=== PATIENT | female | born 1965 | race Caucasian/White ===

== ENCOUNTER 2018-08-19 11:16 | Observation (INO) | payer MEDICAID, OTHER ==
[2018-08-19] MEDS ORDERED: Sodium Chloride 0.9% 2.5 ML Syringe FLUSH PRN (11:17)
[2018-08-19] MEDS ORDERED: Sodium Chloride 0.9% 10 ML Syringe FLUSH PRN (11:17)
[2018-08-19] MEDS ORDERED: Aspirin 81 MG Tab.Chew PO ONE (11:17)
[2018-08-19] MEDS ORDERED: Sodium Chloride 0.9% 1,000 ML IV ONE (11:23)
[2018-08-19] MEDS ORDERED: Albuterol/Ipratropium 3.0-0.5 MG/3 ML Neb Soln NEB ONE (11:23)
[2018-08-19] MEDS ORDERED: methylPREDNISolone Sodium Succinate 125 MG/2 ML SDV IVPUSH ONE (11:23)
[2018-08-19] MEDS ORDERED: Ondansetron 4 MG/2 ML SDV IVPUSH ONE (11:24)
[2018-08-19] MEDS ORDERED: Morphine 2 MG/ML Syringe IVPUSH ONE (11:34)
[2018-08-19] MEDS ORDERED: Nitroglycerin 0.4 MG Tab.SL SL ONE (11:34)
--- NOTE | 2018-08-19 11:34 | EDM.PDOC ---
ED [facility] GENERAL MEDICAL PROBLEM - General Chief Complaint: Chest Pain Stated Complaint: chest pain Time Seen by Provider: 08/19/18 11:17 Source of Information: Reports: Patient History Limitations: Reports: No Limitations - History of Present Illness INITIAL COMMENTS - FREE TEXT/NARRATIVE: HISTORY AND PHYSICAL: History of present illness: Patient is a 52-year-old female who presents to the ED today with concern complaint of a 6 out of 10 chest pain, shortness of breath, and feeling as if she is "unable to take a deep breath". Patient states the chest pain is worse when she presses on the front of her chest. Patient states the pain is also worse if she takes in a big deep breath. Patient states she had a heart attack in March. She states with her heart attach she only had a headache and didn' t have any of the symptoms that she is having today. Patient states she is on Plavix and takes that accordingly after placement of 1 stent. Patient states her symptoms started 1 hour prior to arrival to the ED today. Patient does express some nausea but has not vomited. Patient denies radiation of the pain. Patient denies fever, chills. Denies headache, neck stiff ness, change in vision , syncope, or near syncope. Denies vomiting, abdominal pain, diarrhea, constipation, or dysuria. Has not noted any blood in urine or stool. Patient has been eating and drinking appropriately. Patient has a history of type 2 diabetes on insulin, coronary artery disease s/ p 1 stent on Plavix (March 2018), congestive heart failure, h/o smoking cigarettes 1 pack a day for 30 years, peripheral neuropathy. Review of systems: As per history of present illness and below otherwise all systems reviewed and negative. Past medical history: As per history of present illness and as reviewed below otherwise noncontributory. Surgical history: As per history of present illness and as reviewed below otherwise noncontributory. Social history: See social history for further information Family history: As per history of present illness and as reviewed below otherwise noncontributory. Physical exam: Physical exam is limited due to body habitus. General: Patient is alert, oriented, and in no acute distress. Patient sitting comfortably on exam table. HEENT: Atraumatic, normocephalic, pupils equal and reactive bilaterally, negative for conjunctival pallor or scleral icterus, mucous membranes dry, TMs normal bilaterally, throat clear, neck supple, nontender, trachea midline. No drooling or trismus noted. No meningeal signs. No hot potato voice noted. Lungs: Diffuse low pitch wheezing to the bilateral lung bases, breath sounds equal bilaterally. Patient does have pain with palpation of the ribs #3 and #4 on the left anterior chest. Heart: Heart sounds are distant and limited due to body habitus. S1S2, regular rate and rhythm without overt murmur Abdomen: Obese, soft, nondistended, nontender. positive bowel sounds are positive throughout all quadrants although slightly hypoactive.Negative for masses or hepatosplenomegaly. Negative for costovertebral tenderness. Pelvis: Stable nontender. Genitourinary: Deferred. Rectal: Deferred. Skin: Intact, warm, dry. No lesions or rashes noted. Extremities: Atraumatic, negative for cords or calf pain. Neurovascular unremarkable. Neuro: Awake, alert, oriented. Cranial nerves II through XII unremarkable. Cerebellum unremarkable. Motor and sensory unremarkable throughout. Exam nonfocal. Notes: Dr. Gallardo was consult on patient and agreeable to admission to observation. Voices understanding and is agreeable to plan of care. Denies any further questions or concerns at this time. Diagnostics: CBC, CMP, BMP, lipase, troponin, UA, chest x-ray, hCG qual, EKG, PT/INR, PTT Therapeutics: Aspirin, nitroglycerin (was not given due to blood pressure), morphine, DuoNeb, Solu-Medrol, Zofran, normal saline, Ativan Impression: Chest pain, unspecified Plan: 1. Admit to observation to Dr. Gallardo. Definitive disposition and diagnosis as appropriate pending reevaluation and review of above. chest Pain Score (Numeric/FACES): 7 feet Pain Score (Numeric/FACES): 10 - Related Data Allergies Allergy/AdvReac Type Severity Reaction Status Date / Time carbamazepine [From Tegretol] Allergy Blurred Verified 08/19/18 11:24 Vision ceftriaxone [From Rocephin] Allergy Respiratory Verified 08/19/18 11:24 Distress Penicillins Allergy Cannot Verified 01/06/16 16:43 Remember Home Meds: Home Meds Aspirin [Halfprin] 81 mg PO DAILY 08/19/18 [History] Clopidogrel [Plavix] 75 mg PO DAILY 08/19/18 [History] Furosemide [Lasix] 40 mg PO PRN 08/19/18 [History] Insulin Glargine/Lixisenatide [Soliqua 100 Unit-33 Mcg/ml Pen] 45 units SQ DAILY 08/19/18 [History] Metoprolol Succinate [Toprol Xl] 50 mg PO DAILY 08/19/18 [History] Pregabalin [Lyrica] 300 mg PO BID 08/19/18 [History] Rosuvastatin [Crestor] 20 mg PO DAILY 08/19/18 [History] Past Medical History Endocrine/Metabolic History: Reports: Diabetes, Type I ED ROS GENERAL - Review of Systems Review Of Systems: ROS reveals no pertinent complaints other than HPI. ED EXAM, GENERAL - Physical Exam Exam: See Below (See dictation) Course - Vital Signs Last Recorded V/S: Last Vital Signs Temp 35.3 C 08/19/18 11:27 Pulse 66 08/19/18 12:20 Resp 18 08/19/18 12:20 BP 107/67 08/19/18 12:20 Pulse Ox 97 08/19/18 12:20 - Orders/Labs/Meds Orders: Active Orders 24 hr Category Date Time Status Cardiac Monitoring [RC] . DIRECTED Care 08/19/18 11:17 Active EKG Documentation Completion [RC] STAT Care 08/19/18 11:17 Active RT Aerosol Therapy [RC] ASDIRECTED Care 08/19/18 11:24 Active UA RFX CHRISTINE AND CULT IF INDIC [URIN] Stat Lab 08/19/18 11:17 Ordered Sodium Chloride 0.9% [Saline Flush] Med 08/19/18 11:17 Active 10 ml FLUSH ASDIRECTED PRN Sodium Chloride 0.9% [Saline Flush] Med 08/19/18 11:17 Active 2.5 ml FLUSH ASDIRECTED PRN Saline Lock Insert [OM.PC] Stat Oth 08/19/18 11:17 Ordered Medication Orders Sodium Chloride (Saline Flush) 10 ml FLUSH ASDIRECTED PRN PRN Reason: Keep Vein Open Last Admin: 08/19/18 11:36 Dose: 10 ml Sodium Chloride (Saline Flush) 2.5 ml FLUSH ASDIRECTED PRN PRN Reason: Keep Vein Open Last Admin: 08/19/18 11:35 Dose: 2.5 ml Labs: Laboratory Tests 08/19/18 08/19/1808/19/19 Range/Units 11:20 11:20 11:20 WBC 12.85 H (4.0-11.0) K/uL RBC 5.23 (4.30-5.90) M/uL Hgb 14.2 (12.0-16.0) g/dL Hct 45.1 (36.0-46.0) % MCV 86.2 (80.0-98.0) fL MCH 27.2 (27.0-32.0) pg MCHC 31.5 (31.0-37.0) g/dL RDW Std Deviation 54.4 (28.0-62.0) fl RDW Coeff of Donna 17 H (11.0-15.0) % Plt Count 309 (150-400) K/uL MPV 9.90 (7.40-12.00) fL Neut % (Auto) 63.7 (48.0-80.0) % Lymph % (Auto) 28.3 (16.0-40.0) % [place] % (Auto) 5.7 (0.0-15.0) % Eos % (Auto) 2.1 (0.0-7.0) % Baso % (Auto) 0.2 (0.0-1.5) % Neut # (Auto) 8.2 H (1.4-5.7) K/uL Lymph # (Auto) 3.6 H (0.6-2.4) K/uL [place] # (Auto) 0.7 (0.0-0.8) K/uL Eos # (Auto) 0.3 (0.0-0.7) K/uL Baso # (Auto) 0.0 (0.0-0.1) K/uL Nucleated RBC % 0.0 /100WBC Nucleated RBCs # 0 K/uL INR APTT (18.6-31.3) SEC Sodium 135 L (136-145) mmol/L Potassium 4.5 (3.5-5.1) mmol/L Chloride 99 (98-107) mmol/L Carbon Dioxide 28.2 (21.0-32.0) mmol/L BUN 11 (7.0-18.0) mg/dL Creatinine 1.1 H (0.6-1.0) mg/dL Est Cr Clr Drug Dosing 43.46 mL/min Estimated GFR (MDRD) 52.4 ml/min Glucose 234 H (74-106) mg/dL Calcium 9.1 (8.5-10.1) mg/dL Total Bilirubin 0.5 (0.2-1.0) mg/dL AST 11 L (15-37) IU/L ALT 16 (14-63) IU/L Alkaline Phosphatase 92 (46-116) U/L Troponin I < 0.050 (0.000-0.056) ng/mL B-Natriuretic Peptide 82 (<100) PG/ML Total Protein 7.7 (6.4-8.2) g/dL Albumin 3.8 (3.4-5.0) g/dL Globulin 3.9 (2.6-4.0) g/dL Albumin/Globulin Ratio 1.0 (0.9-1.6) Lipase 84 (73-393) U/L HCG, Qual (NEG) 08/19/18 08/19/18 Range/Units 11:22 11:22 WBC (4.0-11.0) K/uL RBC (4.30-5.90) M/uL Hgb (12.0-16.0) g/dL Hct (36.0-46.0) % MCV (80.0-98.0) fL MCH (27.0-32.0) pg MCHC (31.0-37.0) g/dL RDW Std Deviation (28.0-62.0) fl RDW Coeff of Donna (11.0-15.0) % Plt Count (150-400) K/uL MPV (7.40-12.00) fL Neut % (Auto) (48.0-80.0) % Lymph % (Auto) (16.0-40.0) % [place] % (Auto) (0.0-15.0) % Eos % (Auto) (0.0-7.0) % Baso % (Auto) (0.0-1.5) % Neut # (Auto) (1.4-5.7) K/uL Lymph # (Auto) (0.6-2.4) K/uL [place] # (Auto) (0.0-0.8) K/uL Eos # (Auto) (0.0-0.7) K/uL Baso # (Auto) (0.0-0.1) K/uL Nucleated RBC % /100WBC Nucleated RBCs # K/uL INR 0.98 APTT 27.1 (18.6-31.3) SEC Sodium (136-145) mmol/L Potassium (3.5-5.1) mmol/L Chloride (98-107) mmol/L Carbon Dioxide (21.0-32.0) mmol/L BUN (7.0-18.0) mg/dL Creatinine (0.6-1.0) mg/dL Est Cr Clr Drug Dosing mL/min Estimated GFR (MDRD) ml/min Glucose (74-106) mg/dL Calcium (8.5-10.1) mg/dL Total Bilirubin (0.2-1.0) mg/dL AST (15-37) IU/L ALT (14-63) IU/L Alkaline Phosphatase (46-116) U/L Troponin I (0.000-0.056) ng/mL B-Natriuretic Peptide (<100) PG/ML Total Protein (6.4-8.2) g/dL Albumin (3.4-5.0) g/dL Globulin (2.6-4.0) g/dL Albumin/Globulin Ratio (0.9-1.6) Lipase (73-393) U/L HCG, Qual NEGATIVE (NEG) Meds: Medications Generic Name Dose Route Start Last Admin Trade Name Freq PRN Reason Stop Dose Admin Sodium Chloride 10 ml 08/19/18 11:17 08/19/18 11:36 Saline Flush FLUSH 10 ml ASDIRECTED PRN Administration Keep Vein Open Sodium Chloride 2.5 ml 08/19/18 11:17 08/19/18 11:35 Saline Flush FLUSH 2.5 ml ASDIRECTED PRN Administration Keep Vein Open Discontinued Medications Generic Name Dose Route Start Last Admin Trade Name Freq PRN Reason Stop Dose Admin Albuterol/Ipratropium 3 ml 08/19/18 11:23 08/19/18 11:35 Duoneb 3.0-0.5 Mg/3 Ml NEB 08/19/18 11:24 3 ml ONETIME ONE Administration Aspirin 324 mg 08/19/18 11:17 08/19/18 11:24 Aspirin PO 08/19/18 11:18 324 mg ONETIME ONE Administration Sodium Chloride 1,000 mls @ 999 mls/hr 08/19/18 11:23 08/19/18 11:31 Normal Saline IV 08/19/18 12:23 999 mls/hr STAT ONE Administration Lorazepam 0.5 mg 08/19/18 12:21 08/19/18 12:32 Ativan IVPUSH 08/19/18 12:22 0.5 mg ONETIME ONE Administration Methylprednisolone Sodium Succinate 125 mg 08/19/18 11:23 08/19/18 11:35 Solu-Medrol IVPUSH 08/19/18 11:24 125 mg ONETIME ONE Administration Morphine Sulfate 2 mg 08/19/18 11:34 08/19/18 11:42 Morphine IVPUSH 08/19/18 11:35 2 mg ONETIME ONE Administration Nitroglycerin 0.4 mg 08/19/18 11:34 Nitrostat SL 08/19/18 11:35 ONETIME ONE Ondansetron HCl 4 mg 08/19/18 11:24 08/19/18 11:33 Zofran IVPUSH 08/19/18 11:25 4 mg ONETIME ONE Administration Departure - Departure Time of Disposition: 12:39 Disposition: Refer to Observation Clinical Impression: History of coronary artery disease Chest pain Qualifiers: Chest pain type: unspecified Qualified Code(s): R07.9 - Chest pain, unspecified Type 2 diabetes mellitus 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 DIRECTED EKG Documentation Completion [RC] STAT UA RFX CHRISTINE AND CULT IF INDIC [URIN] Stat Sodium Chloride 0.9% [Saline Flush] 10 ml FLUSH ASDIRECTED PRN Sodium Chloride 0.9% [Saline Flush] 2.5 ml FLUSH ASDIRECTED PRN Saline Lock Insert [OM.PC] Stat 08/19/18 11:24 RT Aerosol Therapy [RC] ASDIRECTED - Assessment/Plan Last 24 Hours: My Active Orders 08/19/18 11:17 Cardiac Monitoring [RC] . DIRECTED EKG Documentation Completion [RC] STAT UA RFX CHRISTINE AND CULT IF INDIC [URIN] Stat Sodium Chloride 0.9% [Saline Flush] 10 ml FLUSH ASDIRECTED PRN Sodium Chloride 0.9% [Saline Flush] 2.5 ml FLUSH ASDIRECTED PRN Saline Lock Insert [OM.PC] Stat 08/19/18 11:24 RT Aerosol Therapy [RC] ASDIRECTED
[2018-08-19 11:55] LABS: CHLORIDE,CL 99 mmol/L (98-107); SODIUM,NA 135 mmol/L (136-145)
--- NOTE | 2018-08-19 11:57 | CR ---
EXAMINATION: Portable chest radiograph. HISTORY: Chest pain. FINDINGS: The trachea is midline. The heart is moderately prominent. The cardiomediastinal silhouette is within normal limits. No pulmonary infiltrates, effusions or pneumothorax. Osseous structures appear unremarkable. IMPRESSION: Cardiomegaly with otherwise no acute cardiopulmonary process.
[2018-08-19] MEDS ORDERED: LORazepam 2 MG/ML SDV IVPUSH ONE (12:21)
[2018-08-19] MEDS ORDERED: Acetaminophen 325 MG Tab PO PRN (13:01)
[2018-08-19] MEDS ORDERED: Docusate Sodium 100 MG Cap PO PRN (13:01)
[2018-08-19] MEDS ORDERED: Ondansetron 4 MG Tab.DIS PO PRN (13:01)
[2018-08-19] MEDS ORDERED: Albuterol/Ipratropium 3.0-0.5 MG/3 ML Neb Soln NEB PRN (13:01)
--- NOTE | 2018-08-19 13:09 | PCM.HP ---
H&P History of Present Illness - General Date of Service: 08/19/18 Admit Problem/Dx: Admission Diagnosis/Problem Admission Diagnosis/Problem Chest pain, diabetes mellitus type 2, insulin- dependent, diabetic neuropathy Source of Information: Patient History Limitations: Reports: No Limitations - History of Present Illness Initial Comments - Free Text/Narative: The patient is a 52-year-old lady who had presented to the emergency department today with a complaint of S pain. The patient also had shortness of breath and felt like she was not able to take a deep breath. The patient says that she has pain that is primarily in her fracture of her chest and does not radiate although she does have associated neck pain. Patient had a heart attack in August 2017 in which she underwent coronary artery stenting. Patient says that she also had profuse sweating with this. The patient also previously had been diagnosed with congestive heart failure. She is currently under treatment for this but she does not know the details. The patient has had no specific aggravating or relieving factors although the medication does help her some. She has no other complaints at the present time. Onset of Symptoms: Reports: Gradual Duration of Symptoms: Reports: Hour(s):, Intermittent Location: Reports: Chest Quality: Reports: Ache, Pressure Severity: Moderate Improves with: Reports: Rest Worsens with: Reports: Breathing, Movement Context: Denies: Sick Contact, Activity/Exercise, Trauma Associated Symptoms: Reports: Chest Pain, Diaphoresis, Nausea/Vomiting chest Pain Score (Numeric/FACES): 7 feet Pain Score (Numeric/FACES): 10 - Related Data Allergies/Adverse Reactions: Allergies Allergy/AdvReac Type Severity Reaction Status Date / Time carbamazepine [From Tegretol] Allergy Blurred Verified 08/19/18 11:24 Vision ceftriaxone [From Rocephin] Allergy Respiratory Verified 08/19/18 11:24 Distress Penicillins Allergy Cannot Verified 01/06/16 16:43 Remember Home Medications: Home Meds Aspirin [Halfprin] 81 mg PO DAILY 08/19/18 [History] Clopidogrel [Plavix] 75 mg PO DAILY 08/19/18 [History] Furosemide [Lasix] 40 mg PO PRN 08/19/18 [History] Insulin Glargine/Lixisenatide [Soliqua 100 Unit-33 Mcg/ml Pen] 45 units SQ DAILY 08/19/18 [History] Metoprolol Succinate [Toprol Xl] 50 mg PO DAILY 08/19/18 [History] Pregabalin [Lyrica] 300 mg PO BID 08/19/18 [History] Rosuvastatin [Crestor] 20 mg PO DAILY 08/19/18 [History] Past Medical History HEENT History: Reports: None Cardiovascular History: Reports: Heart Failure, Hypertension, CO Respiratory History: Reports: None Gastrointestinal History: Reports: None Genitourinary History: Reports: None Musculoskeletal History: Reports: Back Pain, Chronic Neurological History: Reports: Neuropathy, Diabetic Endocrine/Metabolic History: Reports: Diabetes, Type II, Obesity/BMI 30+ Hematologic History: Reports: None Immunologic History: Reports: None Oncologic (Cancer) History: Reports: None Dermatologic History: Reports: None - Infectious Disease History Infectious Disease History: Reports: None Social & Family History - Family History Family Medical History: Noncontributory - Tobacco Use Smoking Status *Q: Former Smoker Used Tobacco, but Quit: Yes Month/Year Tobacco Last Used: 07/2018 - Caffeine Use Caffeine Use: Reports: Soda - Alcohol Use Alcohol Use History: No - Recreational Drug Use Recreational Drug Use: No - Living Situation & Occupation Living situation: Reports: Single, with Family Occupation: Unemployed H&P Review of Systems - Review of Systems: Review Of Systems: See Below General: Reports: Malaise HEENT: Reports: Visual Changes Pulmonary: Reports: Shortness of Breath Cardiovascular: Reports: Chest Pain, Lightheadedness Gastrointestinal: Reports: No Symptoms Genitourinary: Reports: No Symptoms Musculoskeletal: Reports: Neck Pain Skin: Reports: No Symptoms Psychiatric: Reports: No Symptoms Neurological: Reports: No Symptoms Hematologic/Lymphatic: Reports: No Symptoms Immunologic: Reports: No Symptoms Exam - Exam Exam: See Below - Vital Signs Vital Signs: Last Vital Signs Temp 35.3 C 08/19/18 11:27 Pulse 68 08/19/18 13:06 Resp 18 08/19/18 13:06 BP 111/68 08/19/18 13:06 Pulse Ox 98 08/19/18 13:06 Weight: 81.647 kg - Exam Quality Assessment: No: Supplemental Oxygen General: Alert, Oriented, Cooperative, Mild Distress HEENT: Conjunctiva Clear, EACs Clear, EOMI, Mucosa Moist & [place] (Edentulous), Nares Patent, PERRLA Neck: Supple, Trachea Midline. No: Carotid Bruit Lungs: Clear to Auscultation, Normal Respiratory Effort Cardiovascular: Regular Rate, Regular Rhythm, Normal S1, Normal S2 GI/Abdominal Exam: Normal Bowel Sounds, Soft, Non-Tender, No Distention, Other ( Obese). No: Guarding, Rigid (Female) Exam: Deferred Rectal (Female) Exam: Deferred Back Exam: Normal Inspection, Full Range of Motion Extremities: Normal Inspection, Normal Range of Motion, No Pedal Edema Skin: Warm, Dry, Intact Neurological: Cranial Nerves Intact Neuro Extensive - Mental Status: Alert, Oriented x3 Neuro Extensive - Motor, Sensory, Reflexes: CN II-XII Intact, Normal Gait Psychiatric: Alert, Normal Affect, Normal Mood - Patient Data Lab Results Last 24 hrs: Laboratory Results - last 24 hr 08/19/18 08/19/18 08/19/18 Range/Units 11:20 11:20 11:20 WBC 12.85 H (4.0-11.0) K/uL RBC 5.23 (4.30-5.90) M/uL Hgb 14.2 (12.0-16.0) g/dL Hct 45.1 (36.0-46.0) % MCV 86.2 (80.0-98.0) fL MCH 27.2 (27.0-32.0) pg MCHC 31.5 (31.0-37.0) g/dL RDW Std Deviation 54.4 (28.0-62.0) fl RDW Coeff of Donna 17 H (11.0-15.0) % Plt Count 309 (150-400) K/uL MPV 9.90 (7.40-12.00) fL Neut % (Auto) 63.7 (48.0-80.0) % Lymph % (Auto) 28.3 (16.0-40.0) % [place] % (Auto) 5.7 (0.0-15.0) % Eos % (Auto) 2.1 (0.0-7.0) % Baso % (Auto) 0.2 (0.0-1.5) % Neut # (Auto) 8.2 H (1.4-5.7) K/uL Lymph # (Auto) 3.6 H (0.6-2.4) K/uL [place] # (Auto) 0.7 (0.0-0.8) K/uL Eos # (Auto) 0.3 (0.0-0.7) K/uL Baso # (Auto) 0.0 (0.0-0.1) K/uL Nucleated RBC % 0.0 /100WBC Nucleated RBCs # 0 K/uL INR APTT (18.6-31.3) SEC Sodium 135 L (136-145) mmol/L Potassium 4.5 (3.5-5.1) mmol/L Chloride 99 (98-107) mmol/L Carbon Dioxide 28.2 (21.0-32.0) mmol/L BUN 11 (7.0-18.0) mg/dL Creatinine 1.1 H (0.6-1.0) mg/dL Est Cr Clr Drug Dosing 43.46 mL/min Estimated GFR (MDRD) 52.4 ml/min Glucose 234 H (74-106) mg/dL Calcium 9.1 (8.5-10.1) mg/dL Total Bilirubin 0.5 (0.2-1.0) mg/dL AST 11 L (15-37) IU/L ALT 16 (14-63) IU/L Alkaline Phosphatase 92 (46-116) U/L Troponin I < 0.050 (0.000-0.056) ng/mL B-Natriuretic Peptide 82 (<100) PG/ML Total Protein 7.7 (6.4-8.2) g/dL Albumin 3.8 (3.4-5.0) g/dL Globulin 3.9 (2.6-4.0) g/dL Albumin/Globulin Ratio 1.0 (0.9-1.6) Lipase 84 (73-393) U/L HCG, Qual (NEG) Urine Color Urine Appearance Urine pH (5.0-8.0) Ur Specific [place] (1.001-1.035) Urine Protein (NEGATIVE) mg/dL Urine Glucose (UA) (NEGATIVE) mg/dL Urine Ketones (NEGATIVE) mg/dL Urine Occult Blood (NEGATIVE) Urine Nitrite (NEGATIVE) Urine Bilirubin (NEGATIVE) Urine Urobilinogen (<2.0) EU/dL Ur Leukocyte Esterase (NEGATIVE) 08/19/18 08/19/18 08/19/18 Range/Units 11:22 11:22 12:28 WBC (4.0-11.0) K/uL RBC (4.30-5.90) M/uL Hgb (12.0-16.0) g/dL Hct (36.0-46.0) % MCV (80.0-98.0) fL MCH (27.0-32.0) pg MCHC (31.0-37.0) g/dL RDW Std Deviation (28.0-62.0) fl RDW Coeff of Donna (11.0-15.0) % Plt Count (150-400) K/uL MPV (7.40-12.00) fL Neut % (Auto) (48.0-80.0) % Lymph % (Auto) (16.0-40.0) % Phelps % (Auto) (0.0-15.0) % Eos % (Auto) (0.0-7.0) % Baso % (Auto) (0.0-1.5) % Neut # (Auto) (1.4-5.7) K/uL Lymph # (Auto) (0.6-2.4) K/uL [place]ps # (Auto) (0.0-0.8) K/uL Eos # (Auto) (0.0-0.7) K/uL Baso # (Auto) (0.0-0.1) K/uL Nucleated RBC % /100WBC Nucleated RBCs # K/uL INR 0.98 APTT 27.1 (18.6-31.3) SEC Sodium (136-145) mmol/L Potassium (3.5-5.1) mmol/L Chloride (98-107) mmol/L Carbon Dioxide (21.0-32.0) mmol/L BUN (7.0-18.0) mg/dL Creatinine (0.6-1.0) mg/dL Est Cr Clr Drug Dosing mL/min Estimated GFR (MDRD) ml/min Glucose (74-106) mg/dL Calcium (8.5-10.1) mg/dL Total Bilirubin (0.2-1.0) mg/dL AST (15-37) IU/L ALT (14-63) IU/L Alkaline Phosphatase (46-116) U/L Troponin I (0.000-0.056) ng/mL B-Natriuretic Peptide (<100) PG/ML Total Protein (6.4-8.2) g/dL Albumin (3.4-5.0) g/dL Globulin (2.6-4.0) g/dL Albumin/Globulin Ratio (0.9-1.6) Lipase (73-393) U/L HCG, Qual NEGATIVE (NEG) Urine Color YELLOW Urine Appearance SLT CLOUDY Urine pH 6.0 (5.0-8.0) Ur Specific [place] 1.015 (1.001-1.035) Urine Protein NEGATIVE (NEGATIVE) mg/dL Urine Glucose (UA) NEGATIVE (NEGATIVE) mg/dL Urine Ketones NEGATIVE (NEGATIVE) mg/dL Urine Occult Blood NEGATIVE (NEGATIVE) Urine Nitrite NEGATIVE (NEGATIVE) Urine Bilirubin NEGATIVE (NEGATIVE) Urine Urobilinogen 0.2 (<2.0) EU/dL Ur Leukocyte Esterase NEGATIVE (NEGATIVE) Result Diagrams: 08/19/18 11:20 08/19/18 11:20 - Problem List (1) Chest pain SNOMED Code(s): 72291521 ICD Code: R07.9 - CHEST PAIN, UNSPECIFIED Status: Acute Priority: High Current Visit: Yes Qualifiers: Chest pain type: unspecified Qualified Code(s): R07.9 - Chest pain, unspecified (2) Diabetic neuropathy associated with type 2 diabetes mellitus SNOMED Code(s): 172241942683209 ICD Code: E11.40 - TYPE 2 DIABETES MELLITUS WITH DIABETIC NEUROPATHY, UNSP Status: Chronic Priority: High Current Visit: Yes Qualifiers: Diabetes mellitus complication detail: diabetic polyneuropathy Qualified Code(s): E11.42 - Type 2 diabetes mellitus with diabetic polyneuropathy (3) H/O heart artery stent SNOMED Code(s): 790150254, 009694706 ICD Code: Z95.5 - PRESENCE OF CORONARY ANGIOPLASTY IMPLANT AND GRAFT Status : Chronic Priority: High Current Visit: Yes (4) History of coronary artery disease SNOMED Code(s): 831102181 ICD Code: Z86.79 - PERSONAL HISTORY OF OTHER DISEASES OF THE CIRCULATORY SYSTEM Status: Chronic Priority: High Current Visit: Yes (5) Type 2 diabetes mellitus SNOMED Code(s): 80174535 ICD Code: E11.9 - TYPE 2 DIABETES MELLITUS WITHOUT COMPLICATIONS Status: Chronic Priority: High Current Visit: Yes Qualifiers: Diabetes mellitus technician terminal and repeater insulin use: with half-way use Diabetes mellitus complication status: with neurologic complications Diabetes mellitus complication detail: with polyneuropathy Qualified Code(s): E11.42 - Type 2 diabetes mellitus with diabetic polyneuropathy; Z79.4 - FDC (current) use of insulin Problem List Initiated/Reviewed/Updated: Yes Orders Last 24hrs: Active Orders 24 hr Category Date Time Status Admission Status [Patient Status] [ADT] Stat ADT 08/19/18 12:38 Active Blood Glucose Check, Bedside [RC] WITHMEALSANDBED Care 08/19/18 13:01 Ordered Cardiac Monitoring [RC] . DIRECTED Care 08/19/18 11:17 Active Cardiac Monitoring [RC] CONTINUOUS Care 08/19/18 13:02 Ordered Diabetes Education [RC] Click to Edit Care 08/19/18 13:04 Ordered EKG Documentation Completion [RC] AM Care 08/20/18 08:00 Ordered EKG Documentation Completion [RC] STAT Care 08/19/18 11:17 Active Oxygen Therapy [RC] PRN Care 08/19/18 13:01 Ordered RT Aerosol Therapy [RC] ASDIRECTED Care 08/19/18 11:24 Active RT Aerosol Therapy [RC] ASDIRECTED Care 08/19/18 13:04 Ordered Up ad Gladys [RC] ASDIRECTED Care 08/19/18 13:01 Ordered VTE/DVT Education [RC] PER UNIT ROUTINE Care 08/19/18 13:01 Ordered Vital Signs [RC] Q4H Care 08/19/18 13:01 Ordered Consistent Carbohydrate Diet [DIET] Diet 08/19/18 Dinner Ordered BASIC METABOLIC PANEL,BMP [CHEM] AM Lab 08/20/18 05:11 Ordered CBC WITH AUTO DIFF [HEME] AM Lab 08/20/18 05:11 Ordered MAGNESIUM [CHEM] Routine Lab 08/19/18 13:01 Ordered TROPONIN I [CHEM] Q6H Lab 08/19/18 13:01 Ordered TROPONIN I [CHEM] Q6H Lab 08/19/18 19:01 Ordered Acetaminophen [Tylenol] Med 08/19/18 13:01 Ordered 650 mg PO Q4H PRN Albuterol/Ipratropium [DuoNeb 3.0-0.5 MG/3 ML] Med 08/19/18 13:01 Ordered 3 ml NEB Q4HRRT PRN Clopidogrel [Plavix] Med 08/20/18 09:00 Ordered 75 mg PO DAILY Docusate Sodium [Colace] Med 08/19/18 13:01 Ordered 100 mg PO BID PRN Furosemide [Lasix] Med 08/19/18 13:08 Unverified DOSE UNIT RTE FREQ PRN Heparin Sodium Med 08/19/18 13:15 Ordered 5,000 units SUBCUT Q8H Insulin Aspart [NovoLOG] Med 08/19/18 21:00 Ordered See Protocol SUBCUT ACBREAKFASTANDBED Metoprolol Succinate [Toprol XL] Med 08/20/18 09:00 Ordered 50 mg PO DAILY Ondansetron [Zofran ODT] Med 08/19/18 13:01 Ordered 4 mg PO Q6H PRN Pregabalin [Lyrica] Med 08/19/18 13:15 Ordered 300 mg PO BID Sodium Chloride 0.9% [Saline Flush] Med 08/19/18 11:17 Active 10 ml FLUSH ASDIRECTED PRN Sodium Chloride 0.9% [Saline Flush] Med 08/19/18 11:17 Active 2.5 ml FLUSH ASDIRECTED PRN oxyCODONE Med 08/19/18 13:01 Ordered 5 mg PO Q4H PRN Glucose Management Sub Q Reflex [OM.PC] Click To Edit Oth 08/19/18 13:01 Ordered Saline Lock Insert [OM.PC] Stat Oth 08/19/18 11:17 Ordered Resuscitation Status Routine Resus Stat 08/19/18 13:01 Ordered Medication Orders Acetaminophen (Tylenol) 650 mg PO Q4H PRN PRN Reason: Pain (Mild 1-3)/fever Albuterol/Ipratropium (Duoneb 3.0-0.5 Mg/3 Ml) 3 ml NEB Q4HRRT PRN PRN Reason: Shortness Of Breath/wheezing Clopidogrel Bisulfate (Plavix) 75 mg PO DAILY LIANA Docusate Sodium (Colace) 100 mg PO BID PRN PRN Reason: Constipation Heparin Sodium (Porcine) (Heparin Sodium) 5,000 units SUBCUT Q8H LIANA Insulin Aspart (Novolog) 0 unit SUBCUT ACBREAKFASTANDBED LIANA; Protocol Metoprolol Succinate (Toprol Xl) 50 mg PO DAILY LIANA Non-Formulary Medication (Pregabalin [Lyrica]) 300 mg PO BID LIANA Ondansetron HCl (Zofran Odt) 4 mg PO Q6H PRN PRN Reason: nausea, able to take PO Oxycodone HCl (Oxycodone) 5 mg PO Q4H PRN PRN Reason: Pain (moderate 4-6) Sodium Chloride (Saline Flush) 10 ml FLUSH ASDIRECTED PRN PRN Reason: Keep Vein Open Last Admin: 08/19/18 11:36 Dose: 10 ml Sodium Chloride (Saline Flush) 2.5 ml FLUSH ASDIRECTED PRN PRN Reason: Keep Vein Open Last Admin: 08/19/18 11:35 Dose: 2.5 ml Assessment/Plan Comment:: The patient is a 52-year-old lady who had presented primarily out of concern for chest pain. The patient says that this is not the same as it was for her previous heart attack. Regardless, the patient is at very high risk secondary to her diabetes. The patient will be admitted to observation. The patient will be placed on telemetry. I've also ordered to troponins 6 hours apart and monitor these for elevations. Patient will have a heart healthy, diabetic diet as tolerated. The patient will also have Accu-Cheks before meals and at bedtime. We'll use insulin to control her blood sugars with insulin sliding scale at to high dose. Patient is also taking Lyrica for her diabetic neuropathy and this will be continued. I've also ordered repeat EKG in the morning. If the patient has had no further elevations in her troponins and EKG remains unchanged we'll consider the patient for discharge. Patient has been encouraged to ambulate. Also because of the patient's mild renal insufficiency have started her on heparin 5000 units every 8 hours for DVT prophylaxis. The patient will continue with her other home medications.
[2018-08-19] MEDS ORDERED: Furosemide 40 MG Tab PO PRN (14:06)
[2018-08-19] MEDS: oxyCODONE 5 MG Tab PO PRN ×2 (14:14→18:22)
[2018-08-19] MEDS: Pregabalin 75 MG Cap PO SCH ×2 (14:16→20:48)
[2018-08-19] MEDS: Heparin Sodium 5,000 Units/ML Vial SUBCUT SCH ×2 (14:16→20:48)
[2018-08-19] MEDS ORDERED: Alum Hydrox/Mag Hydrox/Simeth 15 ML, Lidocaine 2% 5 ML PO ONE ×2 (15:53)
[2018-08-19] MEDS ORDERED: Magnesium Sulfate/Water 2 GM in Premix Bag 1 BAG IV ONE (16:16)
[2018-08-19] MEDS ORDERED: LORazepam 0.5 MG Tab PO PRN (18:10)
[2018-08-19] MEDS ORDERED: Insulin Regular, Human 100 Units/ML 10 ML Vial SUBCUT ONE (20:35)
[2018-08-19] MEDS: Insulin Aspart 100 Units/ML 3 ML Pen SUBCUT SCH (20:48)
[2018-08-20] MEDS: Heparin Sodium 5,000 Units/ML Vial SUBCUT SCH (05:06)
[2018-08-20] MEDS: oxyCODONE 5 MG Tab PO PRN (05:07)
--- NOTE | 2018-08-20 06:47 | PCM.DCSUM1 ---
Discharge Summary - Hospital Course HPI Initial Comments: Admitted to observation for chest pain Diagnosis: Stroke: No - Discharge Data Discharge Date: 08/20/18 Discharge Disposition: Home, Self-Care 01 Condition: Good - Discharge Diagnosis/Problem(s) (1) Chest pain SNOMED Code(s): 29847905 ICD Code: R07.9 - CHEST PAIN, UNSPECIFIED Status: Chronic Priority: High Current Visit: Yes Qualifiers: Chest pain type: intercostal pain Qualified Code(s): R07.82 - Intercostal pain (2) Diabetic neuropathy associated with type 2 diabetes mellitus SNOMED Code(s): 525525266703945 ICD Code: E11.40 - TYPE 2 DIABETES MELLITUS WITH DIABETIC NEUROPATHY, UNSP Status: Chronic Priority: High Current Visit: Yes Qualifiers: Diabetes mellitus complication detail: diabetic polyneuropathy Qualified Code(s): E11.42 - Type 2 diabetes mellitus with diabetic polyneuropathy (3) H/O heart artery stent SNOMED Code(s): 155659850, 349253862 ICD Code: Z95.5 - PRESENCE OF CORONARY ANGIOPLASTY IMPLANT AND GRAFT Status : Chronic Priority: High Current Visit: Yes (4) History of coronary artery disease SNOMED Code(s): 918560579 ICD Code: Z86.79 - PERSONAL HISTORY OF OTHER DISEASES OF THE CIRCULATORY SYSTEM Status: Chronic Priority: High Current Visit: Yes (5) Type 2 diabetes mellitus SNOMED Code(s): 71013040 ICD Code: E11.9 - TYPE 2 DIABETES MELLITUS WITHOUT COMPLICATIONS Status: Chronic Priority: High Current Visit: Yes Qualifiers: Diabetes mellitus usp insulin use: with ferry terminal agent use Diabetes mellitus complication status: with neurologic complications Diabetes mellitus complication detail: with polyneuropathy Qualified Code(s): E11.42 - Type 2 diabetes mellitus with diabetic polyneuropathy; Z79.4 - termite technician (current) use of insulin - Patient Summary/Data Hospital Course: The patient is a 52-year-old lady who had presented to the emergency department with a complaint of chest pain. She had shortness of breath with this. The patient had been concerned with the fact that she had prior OH in March 2018 and subsequent stenting. The patient said that the pain had radiated into her neck. She is also a type II diabetic and is on insulin. The patient was admitted for observation and telemetry along with serial enzyme testing. The patient also had some subsequent anxiety and she had been placed on lorazepam and this seemed to help her. The patient was noted to have mild leukocytosis without a left shift and it's is thought to be due to demarginalization secondary to her diabetes. The patient had serial troponins and these proved to be undetectable. The patient had remained with no cardiac events overnight on telemetry. Repeat EKGs were essentially normal which did not show any changes over time. The patient also had been ambulating. The patient does not have a primary care physician or mail technician locally and these have been recommended for her. The patient is to continue with her heart healthy, diabetic diet as tolerated. She is also to continue with activity as tolerated. The patient has been discharged from acute hospitalization with the recommendations listed above. - Patient Instructions Diet: Heart Healthy Diet, Diabetic Diet Activity: As Tolerated - Discharge Plan *PRESCRIPTION DRUG MONITORING PROGRAM REVIEWED*: No *COPY OF PRESCRIPTION DRUG MONITORING REPORT IN PATIENT MEGAN: No Prescriptions/Med Rec: ALPRAZolam [Xanax] 0.5 mg PO Q8H PRN #10 tablet PRN Reason: Anxiety Home Medications: Home Meds Aspirin [Halfprin] 81 mg PO DAILY 08/19/18 [History] Clopidogrel [Plavix] 75 mg PO DAILY 08/19/18 [History] Furosemide [Lasix] 40 mg PO DAILY PRN 08/19/18 [History] Insulin Glargine/Lixisenatide [[place]a 100 Unit-33 Mcg/ml Pen] 45 units SQ DAILY 08/19/18 [History] Metoprolol Succinate [Toprol Xl] 50 mg PO DAILY 08/19/18 [History] Pregabalin [Lyrica] 300 mg PO BID 08/19/18 [History] Rosuvastatin [Crestor] 20 mg PO DAILY 08/19/18 [History] ALPRAZolam [Xanax] 0.5 mg PO Q8H PRN #10 tablet 08/20/18 [Rx] Oxygen Therapy Mode: Room Air Patient Handouts: Type 2 Diabetes Mellitus, Diagnosis, Adult, Coronary Angiogram With Stent, Care After, Alprazolam tablets Referrals: Kal Crocker MD [Resident] - (Please call the clinic on Wednesday for follow up appointment.) Arlet Rockwell MD [Physician] - - Discharge Summary/Plan Comment DC Time >30 min.: Yes - General Info Date of Service: 08/20/18 Admission Dx/Problem (Free Text: Admission Diagnosis/Problem Admission Diagnosis/Problem Chest pain, diabetes mellitus type 2, insulin- dependent, diabetic neuropathy Functional Status: Denies: Pain Controlled - Review of Systems General: Reports: No Symptoms HEENT: Reports: No Symptoms Pulmonary: Reports: No Symptoms Cardiovascular: Reports: No Symptoms Gastrointestinal: Reports: No Symptoms Genitourinary: Reports: No Symptoms Musculoskeletal: Reports: No Symptoms Skin: Reports: No Symptoms Neurological: Reports: No Symptoms Psychiatric: Reports: No Symptoms - Patient Data Vitals - Most Recent: Last Vital Signs Temp 36.4 C 08/20/18 03:00 Pulse 75 08/20/18 03:00 Resp 18 08/20/18 03:00 BP 98/59 L 08/20/18 03:00 Pulse Ox 94 L 08/20/18 03:00 Weight - Most Recent: 82.599 kg I&O - Last 24 hours: Intake & Output 08/19/18 08/19/18 08/20/18 14:59 22:59 06:59 Intake Total 240 Balance 240 Lab Results - Last 24 hrs: Laboratory Results - last 24 hr 08/19/18 08/19/18 08/19/18 Range/Units 11:20 11:20 11:20 WBC 12.85 H (4.0-11.0) K/uL RBC 5.23 (4.30-5.90) M/uL Hgb 14.2 (12.0-16.0) g/dL Hct 45.1 (36.0-46.0) % MCV 86.2 (80.0-98.0) fL MCH 27.2 (27.0-32.0) pg MCHC 31.5 (31.0-37.0) g/dL RDW Std Deviation 54.4 (28.0-62.0) fl RDW Coeff of Donna 17 H (11.0-15.0) % Plt Count 309 (150-400) K/uL MPV 9.90 (7.40-12.00) fL Neut % (Auto) 63.7 (48.0-80.0) % Lymph % (Auto) 28.3 (16.0-40.0) % [place] % (Auto) 5.7 (0.0-15.0) % Eos % (Auto) 2.1 (0.0-7.0) % Baso % (Auto) 0.2 (0.0-1.5) % Neut # (Auto) 8.2 H (1.4-5.7) K/uL Lymph # (Auto) 3.6 H (0.6-2.4) K/uL [place] # (Auto) 0.7 (0.0-0.8) K/uL Eos # (Auto) 0.3 (0.0-0.7) K/uL Baso # (Auto) 0.0 (0.0-0.1) K/uL Nucleated RBC % 0.0 /100WBC Nucleated RBCs # 0 K/uL INR APTT (18.6-31.3) SEC Sodium 135 L (136-145) mmol/L Potassium 4.5 (3.5-5.1) mmol/L Chloride 99 (98-107) mmol/L Carbon Dioxide 28.2 (21.0-32.0) mmol/L BUN 11 (7.0-18.0) mg/dL Creatinine 1.1 H (0.6-1.0) mg/dL Est Cr Clr Drug Dosing 43.46 mL/min Estimated GFR (MDRD) 52.4 ml/min Glucose 234 H (74-106) mg/dL POC Glucose (60-110) mg/dL Calcium 9.1 (8.5-10.1) mg/dL Magnesium (1.8-2.4) mg/dL Total Bilirubin 0.5 (0.2-1.0) mg/dL AST 11 L (15-37) IU/L ALT 16 (14-63) IU/L Alkaline Phosphatase 92 (46-116) U/L Troponin I < 0.050 (0.000-0.056) ng/mL B-Natriuretic Peptide 82 (<100) PG/ML Total Protein 7.7 (6.4-8.2) g/dL Albumin 3.8 (3.4-5.0) g/dL Globulin 3.9 (2.6-4.0) g/dL Albumin/Globulin Ratio 1.0 (0.9-1.6) Lipase 84 (73-393) U/L HCG, Qual (NEG) Urine Color Urine Appearance Urine pH (5.0-8.0) Ur Specific [place] (1.001-1.035) Urine Protein (NEGATIVE) mg/dL Urine Glucose (UA) (NEGATIVE) mg/dL Urine Ketones (NEGATIVE) mg/dL Urine Occult Blood (NEGATIVE) Urine Nitrite (NEGATIVE) Urine Bilirubin (NEGATIVE) Urine Urobilinogen (<2.0) EU/dL Ur Leukocyte Esterase (NEGATIVE) 08/19/18 08/19/18 08/19/18 Range/Units 11:22 11:22 12:28 WBC (4.0-11.0) K/uL RBC (4.30-5.90) M/uL Hgb (12.0-16.0) g/dL Hct (36.0-46.0) % MCV (80.0-98.0) fL MCH (27.0-32.0) pg MCHC (31.0-37.0) g/dL RDW Std Deviation (28.0-62.0) fl RDW Coeff of Donna (11.0-15.0) % Plt Count (150-400) K/uL MPV (7.40-12.00) fL Neut % (Auto) (48.0-80.0) % Lymph % (Auto) (16.0-40.0) % [place] % (Auto) (0.0-15.0) % Eos % (Auto) (0.0-7.0) % Baso % (Auto) (0.0-1.5) % Neut # (Auto) (1.4-5.7) K/uL Lymph # (Auto) (0.6-2.4) K/uL [place] # (Auto) (0.0-0.8) K/uL Eos # (Auto) (0.0-0.7) K/uL Baso # (Auto) (0.0-0.1) K/uL Nucleated RBC % /100WBC Nucleated RBCs # K/uL INR 0.98 APTT 27.1 (18.6-31.3) SEC Sodium (136-145) mmol/L Potassium (3.5-5.1) mmol/L Chloride (98-107) mmol/L Carbon Dioxide (21.0-32.0) mmol/L BUN (7.0-18.0) mg/dL Creatinine (0.6-1.0) mg/dL Est Cr Clr Drug Dosing mL/min Estimated GFR (MDRD) ml/min Glucose (74-106) mg/dL POC Glucose (60-110) mg/dL Calcium (8.5-10.1) mg/dL Magnesium (1.8-2.4) mg/dL Total Bilirubin (0.2-1.0) mg/dL AST (15-37) IU/L ALT (14-63) IU/L Alkaline Phosphatase (46-116) U/L Troponin I (0.000-0.056) ng/mL B-Natriuretic Peptide (<100) PG/ML Total Protein (6.4-8.2) g/dL Albumin (3.4-5.0) g/dL Globulin (2.6-4.0) g/dL Albumin/Globulin Ratio (0.9-1.6) Lipase (73-393) U/L HCG, Qual NEGATIVE (NEG) Urine Color YELLOW Urine Appearance SLT CLOUDY Urine pH 6.0 (5.0-8.0) Ur Specific [place] 1.015 (1.001-1.035) Urine Protein NEGATIVE (NEGATIVE) mg/dL Urine Glucose (UA) NEGATIVE (NEGATIVE) mg/dL Urine Ketones NEGATIVE (NEGATIVE) mg/dL Urine Occult Blood NEGATIVE (NEGATIVE) Urine Nitrite NEGATIVE (NEGATIVE) Urine Bilirubin NEGATIVE (NEGATIVE) Urine Urobilinogen 0.2 (<2.0) EU/dL Ur Leukocyte Esterase NEGATIVE (NEGATIVE) 08/19/18 08/19/18 08/19/18 Range/Units 14:15 16:07 19:08 WBC (4.0-11.0) K/uL RBC (4.30-5.90) M/uL Hgb (12.0-16.0) g/dL Hct (36.0-46.0) % MCV (80.0-98.0) fL MCH (27.0-32.0) pg MCHC (31.0-37.0) g/dL RDW Std Deviation (28.0-62.0) fl RDW Coeff of Donna (11.0-15.0) % Plt Count (150-400) K/uL MPV (7.40-12.00) fL Neut % (Auto) (48.0-80.0) % Lymph % (Auto) (16.0-40.0) % [place] % (Auto) (0.0-15.0) % Eos % (Auto) (0.0-7.0) % Baso % (Auto) (0.0-1.5) % Neut # (Auto) (1.4-5.7) K/uL Lymph # (Auto) (0.6-2.4) K/uL [place] # (Auto) (0.0-0.8) K/uL Eos # (Auto) (0.0-0.7) K/uL Baso # (Auto) (0.0-0.1) K/uL Nucleated RBC % /100WBC Nucleated RBCs # K/uL INR APTT (18.6-31.3) SEC Sodium (136-145) mmol/L Potassium (3.5-5.1) mmol/L Chloride (98-107) mmol/L Carbon Dioxide (21.0-32.0) mmol/L BUN (7.0-18.0) mg/dL Creatinine (0.6-1.0) mg/dL Est Cr Clr Drug Dosing mL/min Estimated GFR (MDRD) ml/min Glucose (74-106) mg/dL POC Glucose 302 H (60-110) mg/dL Calcium (8.5-10.1) mg/dL Magnesium 1.7 L (1.8-2.4) mg/dL Total Bilirubin (0.2-1.0) mg/dL AST (15-37) IU/L ALT (14-63) IU/L Alkaline Phosphatase (46-116) U/L Troponin I < 0.050 < 0.050 (0.000-0.056) ng/mL B-Natriuretic Peptide (<100) PG/ML Total Protein (6.4-8.2) g/dL Albumin (3.4-5.0) g/dL Globulin (2.6-4.0) g/dL Albumin/Globulin Ratio (0.9-1.6) Lipase (73-393) U/L HCG, Qual (NEG) Urine Color Urine Appearance Urine pH (5.0-8.0) Ur Specific [place] (1.001-1.035) Urine Protein (NEGATIVE) mg/dL Urine Glucose (UA) (NEGATIVE) mg/dL Urine Ketones (NEGATIVE) mg/dL Urine Occult Blood (NEGATIVE) Urine Nitrite (NEGATIVE) Urine Bilirubin (NEGATIVE) Urine Urobilinogen (<2.0) EU/dL Ur Leukocyte Esterase (NEGATIVE) 08/19/18 08/20/18 08/20/18 Range/Units 20:29 04:55 04:55 WBC 13.20 H (4.0-11.0) K/uL RBC 4.86 (4.30-5.90) M/uL Hgb 13.0 (12.0-16.0) g/dL Hct 41.4 (36.0-46.0) % MCV 85.2 (80.0-98.0) fL MCH 26.7 L (27.0-32.0) pg MCHC 31.4 (31.0-37.0) g/dL RDW Std Deviation 54.2 (28.0-62.0) fl RDW Coeff of Donna 18 H (11.0-15.0) % Plt Count 269 (150-400) K/uL MPV 10.20 (7.40-12.00) fL Neut % (Auto) 77.6 (48.0-80.0) % Lymph % (Auto) 15.9 L (16.0-40.0) % [place] % (Auto) 6.2 (0.0-15.0) % Eos % (Auto) 0.2 (0.0-7.0) % Baso % (Auto) 0.1 (0.0-1.5) % Neut # (Auto) 10.3 H (1.4-5.7) K/uL Lymph # (Auto) 2.1 (0.6-2.4) K/uL [place] # (Auto) 0.8 (0.0-0.8) K/uL Eos # (Auto) 0.0 (0.0-0.7) K/uL Baso # (Auto) 0.0 (0.0-0.1) K/uL Nucleated RBC % 0.0 /100WBC Nucleated RBCs # 0 K/uL INR APTT (18.6-31.3) SEC Sodium 136 (136-145) mmol/L Potassium 4.8 (3.5-5.1) mmol/L Chloride 101 (98-107) mmol/L Carbon Dioxide 25.7 (21.0-32.0) mmol/L BUN 21 H (7.0-18.0) mg/dL Creatinine 1.3 H (0.6-1.0) mg/dL Est Cr Clr Drug Dosing 36.77 mL/min Estimated GFR (MDRD) 43.2 ml/min Glucose 321 H (74-106) mg/dL POC Glucose 485 H (60-110) mg/dL Calcium 8.7 (8.5-10.1) mg/dL Magnesium 2.1 (1.8-2.4) mg/dL Total Bilirubin (0.2-1.0) mg/dL AST (15-37) IU/L ALT (14-63) IU/L Alkaline Phosphatase (46-116) U/L Troponin I (0.000-0.056) ng/mL B-Natriuretic Peptide (<100) PG/ML Total Protein (6.4-8.2) g/dL Albumin (3.4-5.0) g/dL Globulin (2.6-4.0) g/dL Albumin/Globulin Ratio (0.9-1.6) Lipase (73-393) U/L HCG, Qual (NEG) Urine Color Urine Appearance Urine pH (5.0-8.0) Ur Specific [place] (1.001-1.035) Urine Protein (NEGATIVE) mg/dL Urine Glucose (UA) (NEGATIVE) mg/dL Urine Ketones (NEGATIVE) mg/dL Urine Occult Blood (NEGATIVE) Urine Nitrite (NEGATIVE) Urine Bilirubin (NEGATIVE) Urine Urobilinogen (<2.0) EU/dL Ur Leukocyte Esterase (NEGATIVE) Med Orders - Current: Current Medications Acetaminophen (Tylenol) 650 mg PO Q4H PRN PRN Reason: Pain (Mild 1-3)/fever Albuterol/Ipratropium (Duoneb 3.0-0.5 Mg/3 Ml) 3 ml NEB Q4HRRT PRN PRN Reason: Shortness Of Breath/wheezing Clopidogrel Bisulfate (Plavix) 75 mg PO DAILY LIANA Docusate Sodium (Colace) 100 mg PO BID PRN PRN Reason: Constipation Furosemide (Lasix) 40 mg PO DAILY PRN PRN Reason: Edema Last Admin: 08/19/18 18:23 Dose: 40 mg Heparin Sodium (Porcine) (Heparin Sodium) 5,000 units SUBCUT Q8H [facility] Last Admin: 08/20/18 05:06 Dose: 5,000 units Insulin Aspart (Novolog) 0 unit SUBCUT ACBREAKFASTANDBED [facility]; Protocol Last Admin: 08/19/18 20:48 Dose: 15 units Lorazepam (Ativan) 0.5 mg PO Q6H PRN PRN Reason: Agitation Metoprolol Succinate (Toprol Xl) 50 mg PO DAILY [facility] Nicotine (Habitrol) 21 mg TRDERM Q24H [facility] Ondansetron HCl (Zofran Odt) 4 mg PO Q6H PRN PRN Reason: nausea, able to take PO Oxycodone HCl (Oxycodone) 5 mg PO Q4H PRN PRN Reason: Pain (moderate 4-6) Last Admin: 08/20/18 05:07 Dose: 5 mg Pregabalin (Lyrica) 300 mg PO BID [facility] Last Admin: 08/19/18 20:48 Dose: 300 mg Sodium Chloride (Saline Flush) 10 ml FLUSH ASDIRECTED PRN PRN Reason: Keep Vein Open Last Admin: 08/19/18 11:36 Dose: 10 ml Sodium Chloride (Saline Flush) 2.5 ml FLUSH ASDIRECTED PRN PRN Reason: Keep Vein Open Last Admin: 08/19/18 11:35 Dose: 2.5 ml Discontinued Medications Albuterol/Ipratropium (Duoneb 3.0-0.5 Mg/3 Ml) 3 ml NEB ONETIME ONE Stop: 08/19/18 11:24 Last Admin: 08/19/18 11:35 Dose: 3 ml Aspirin (Aspirin) 324 mg PO ONETIME ONE Stop: 08/19/18 11:18 Last Admin: 08/19/18 11:24 Dose: 324 mg Al Hydroxide/Mg Hydroxide 15 (ml/ Lidocaine HCl 5 ml) 0 ml PO ONETIME ONE Stop: 08/19/18 15:54 Last Admin: 08/19/18 16:46 Dose: 1 each Sodium Chloride (Normal Saline) 1,000 mls @ 999 mls/hr IV STAT ONE Stop: 08/19/18 12:23 Last Admin: 08/19/18 11:31 Dose: 999 mls/hr Magnesium Sulfate 2 gm/ Premix 50 mls @ 50 mls/hr IV ONETIME ONE Stop: 08/19/18 17:15 Last Admin: 08/19/18 16:46 Dose: 50 mls/hr Insulin Human Regular (Novolin R) 5 unit SUBCUT ONETIME ONE; Protocol Stop: 08/19/18 20:36 Last Admin: 08/19/18 20:53 Dose: 5 units Lorazepam (Ativan) 0.5 mg IVPUSH ONETIME ONE Stop: 08/19/18 12:22 Last Admin: 08/19/18 12:32 Dose: 0.5 mg Methylprednisolone Sodium Succinate (Solu-Medrol) 125 mg IVPUSH ONETIME ONE Stop: 08/19/18 11:24 Last Admin: 08/19/18 11:35 Dose: 125 mg Morphine Sulfate (Morphine) 2 mg IVPUSH ONETIME ONE Stop: 08/19/18 11:35 Last Admin: 08/19/18 11:42 Dose: 2 mg Nitroglycerin (Nitrostat) 0.4 mg SL ONETIME ONE Stop: 08/19/18 11:35 Last Admin: 08/19/18 13:32 Dose: Not Given Ondansetron HCl (Zofran) 4 mg IVPUSH ONETIME ONE Stop: 08/19/18 11:25 Last Admin: 08/19/18 11:33 Dose: 4 mg - Exam Quality Assessment: Denies: Supplemental Oxygen General: Reports: Alert, Oriented HEENT: Reports: Pupils Equal, Pupils Reactive, EOMI, Mucous Membr. Moist/[place] Neck: Reports: Supple, Trachea Midline, No JVD Lungs: Reports: Clear to Auscultation, Normal Respiratory Effort Cardiovascular: Reports: Regular Rate, Regular Rhythm GI/Abdominal Exam: Normal Bowel Sounds, Soft, Non-Tender, No Distention (Female) Exam: Deferred Rectal (Female) Exam: Deferred Back Exam: Reports: Normal Inspection, Full Range of Motion Extremities: Normal Inspection, No Pedal Edema Skin: Reports: Warm, Dry, Intact Neurological: Reports: No New Focal Deficit Psy/Mental Status: Reports: Alert, Normal Affect, Normal Mood EKG INTERPRETATION EKG Date: 08/20/18 Time: 08:02 Rhythm: NSR [place]: Normal P-Wave: Present QRS: Normal Comparison: No Change
[2018-08-20 07:29] VITALS: BP 113/69
[2018-08-20] MEDS: Pregabalin 75 MG Cap PO SCH (08:21)
[2018-08-20] MEDS: Insulin Aspart 100 Units/ML 3 ML Pen SUBCUT SCH (08:22)
[2018-08-20] MEDS ORDERED: Clopidogrel 75 MG Tab PO SCH (09:00)
[2018-08-20] MEDS ORDERED: Nicotine 21 MG/24 Hr Patch TRDERM SCH (09:00)
[2018-08-20] MEDS ORDERED: Metoprolol Succinate 50 MG Tab.ER PO SCH (09:00)
== END 2018-08-20 11:00 | disposition home or self-care (01) ==
LOC: MW.ED 11:16 → MW.MS 13:38
PROVIDERS: ADMIT Internal Medicine; ATTEND Internal Medicine
DX: R07.82 Intercostal pain (principal); E11.42 Type 2 diabetes mellitus with diabetic polyneuropathy; Z95.5 Presence of coronary angioplasty implant and graft; I25.10 Atherosclerotic heart disease of native coronary artery without angina pectoris; I25.2 Old myocardial infarction; Z79.4 Long term (current) use of insulin; F41.9 Anxiety disorder, unspecified; D72.829 Elevated white blood cell count, unspecified; Z79.82 Long term (current) use of aspirin; Z79.02 Long term (current) use of antithrombotics/antiplatelets; Z79.899 Other long term (current) drug therapy; Z88.0 Allergy status to penicillin; Z88.1 Allergy status to other antibiotic agents; Z88.8 Allergy status to other drugs, medicaments and biological substances; I11.0 Hypertensive heart disease with heart failure; I50.9 Heart failure, unspecified; E66.9 Obesity, unspecified; Z68.35 Body mass index [BMI] 35.0-35.9, adult; Z87.891 Personal history of nicotine dependence
CPT/HCPCS: 36415; 71045; 80048; 80053; 81003; 82962; 83690; 83735; 83880; 84484; 84703; 85025; 85610; 85730; 93005; 96361; 96372; 96374; 96375; 99285; A9270; G0378; J1644; J1815; J2060; J2270; J2405; J2930; J3475; J7040; J7620-GY

== ENCOUNTER 2018-08-21 18:03 | Emergency (ER) | payer MEDICAID ==
[2018-08-21] MEDS ORDERED: Sodium Chloride 0.9% 1,000 ML IV ONE (18:12)
[2018-08-21] MEDS ORDERED: Ondansetron 4 MG/2 ML SDV IVPUSH ONE (18:12)
--- NOTE | 2018-08-21 18:36 | EDM.PDOC ---
ED HPI GENERAL MEDICAL PROBLEM - General Chief Complaint: Trauma Stated Complaint: PT HURNeda HAGER Time Seen by Provider: 08/21/18 18:09 Source of Information: Reports: Patient History Limitations: Reports: No Limitations - History of Present Illness INITIAL COMMENTS - FREE TEXT/NARRATIVE: HISTORY AND PHYSICAL: History of present illness: Patient is a 52-year-old female presents to the ED today for concern of chest pain which has been evaluated and patient was recently admitted and discharged for approximately one day ago. Patient states she is also here because she fell on the bottom step and hit her tailbone and now has tailbone pain. Patient states the chest pain for 3 days that has been non stop and is unchanged from her prior workup and has not increased or decreased in severity. She states the chest pain symptoms remain the same despite inpatient stay and workup/ treatment. Patient states she was walking down a step and missed the bottom step and fell on her tailbone just prior to arrival to the ED. She rates her tailbone pain a 9 out of 10. Patient is on a blood thinning medication. Patient does express some nausea but no vomiting. Patient denies fever, chills, shortness of breath, or cough. Denies headache, neck stiff ness, change in vision, syncope, or near syncope. Denies vomiting, abdominal pain, diarrhea, constipation, or dysuria. Has not noted any blood in urine or stool. Patient has been eating and drinking appropriately. Patient has a history of congestive heart failure, hypertension, coronary artery disease, and type 2 diabetes. Review of systems: As per history of present illness and below otherwise all systems reviewed and negative. Past medical history: As per history of present illness and as reviewed below otherwise noncontributory. Surgical history: As per history of present illness and as reviewed below otherwise noncontributory. Social history: See social history for further information Family history: As per history of present illness and as reviewed below otherwise noncontributory. Physical exam: General: Patient is alert, oriented, and in no acute distress. Patient laying comfortably on exam table. HEENT: Atraumatic, normocephalic, pupils equal and reactive bilaterally, negative for conjunctival pallor or scleral icterus, mucous membranes moist, TMs normal bilaterally, throat clear, neck supple, nontender, trachea midline. No drooling or trismus noted. No meningeal signs. No hot potato voice noted. Lungs: Clear to auscultation, breath sounds equal bilaterally. Patient does have pain to palpation of ribs 4 and 5 on the left anterior aspect of the chest. Heart: S1S2, regular rate and rhythm without overt murmur Abdomen: Obese, soft, nondistended, nontender. Negative for masses or hepatosplenomegaly. Negative for costovertebral tenderness. Pelvis: Stable nontender. Genitourinary: Deferred. Rectal: Deferred. Skin: Intact, warm, dry. No lesions or rashes noted. Extremities: Atraumatic, negative for cords or calf pain. Neurovascular unremarkable. Neuro: Awake, alert, oriented. Cranial nerves II through XII unremarkable. Cerebellum unremarkable. Motor and sensory unremarkable throughout. Exam nonfocal. Notes: Trauma alert was called upon arrival to the ED. Dr. Sharma aware and involved in care of patient. EKG was performed upon arrival and before discharge. No changes from EKG today in ED and in comparison to EKG done 3 days ago. Discussed the importance of follow-up with her professor of floriculture and her primary care provider. Voices understanding and is agreeable to plan of care. Denies any further questions or concerns at this time. Diagnostics: CBC, CMP, UA, chest x-ray, troponin, EKG x 2, coccyx x-ray Therapeutics: Saline, Zofran, Tylenol Prescription: None Impression: Unspecified chest pain Tailbone injury Plan: 1. You can alternate Tylenol and ibuprofen as directed for pain and discomfort. 2. Follow-up with your primary care provider and professor of floriculture as discussed. 3. Return to the ED as needed and as discussed. Definitive disposition and diagnosis as appropriate pending reevaluation and review of above. chest Pain Score (Numeric/FACES): 7 tailbone Pain Score (Numeric/FACES): 9 - Related Data Allergies Allergy/AdvReac Type Severity Reaction Status Date / Time carbamazepine [From Tegretol] Allergy Blurred Verified 08/19/18 11:24 Vision ceftriaxone [From Rocephin] Allergy Respiratory Verified 08/19/18 11:24 Distress Penicillins Allergy Cannot Verified 01/06/16 16:43 Remember Home Meds: Home Meds Aspirin [Halfprin] 81 mg PO DAILY 08/19/18 [History] Clopidogrel [Plavix] 75 mg PO DAILY 08/19/18 [History] Furosemide [Lasix] 40 mg PO DAILY PRN 08/19/18 [History] Insulin Glargine/Lixisenatide [Soliqua 100 Unit-33 Mcg/ml Pen] 45 units SQ DAILY 08/19/18 [History] Metoprolol Succinate [Toprol Xl] 50 mg PO DAILY 08/19/18 [History] Pregabalin [Lyrica] 300 mg PO BID 08/19/18 [History] Rosuvastatin [Crestor] 20 mg PO DAILY 08/19/18 [History] ALPRAZolam [Xanax] 0.5 mg PO Q8H PRN #10 tablet 08/20/18 [Rx] Past Medical History HEENT History: Reports: None Cardiovascular History: Reports: Heart Failure, Hypertension, [place] Respiratory History: Reports: None Gastrointestinal History: Reports: None Genitourinary History: Reports: None Musculoskeletal History: Reports: Back Pain, Chronic Neurological History: Reports: Neuropathy, Diabetic Endocrine/Metabolic History: Reports: Diabetes, Type II, Obesity/BMI 30+ Hematologic History: Reports: None Immunologic History: Reports: None Oncologic (Cancer) History: Reports: None Dermatologic History: Reports: None - Infectious Disease History Infectious Disease History: Reports: None Social & Family History - Family History Family Medical History: Noncontributory - Tobacco Use Smoking Status *Q: Former Smoker Years of Tobacco use: 30 Used Tobacco, but Quit: Yes Month/Year Tobacco Last Used: 08/2018 - Caffeine Use Caffeine Use: Reports: None - Recreational Drug Use Recreational Drug Use: No - Living Situation & Occupation Living situation: Reports: Single, with Family Occupation: Unemployed Review of Systems - Review of Systems Review Of Systems: ROS reveals no pertinent complaints other than HPI. ED EXAM, GENERAL - Physical Exam Exam: See Below (See dictation) Course - Vital Signs Last Recorded V/S: Last Vital Signs Temp 36.6 C 08/21/18 20:00 Pulse 75 08/21/18 20:00 Resp 12 08/21/18 20:00 BP 138/89 08/21/18 20:00 Pulse Ox 98 08/21/18 20:00 Orthostatic Blood Pressure [ 114/79 Standing] Orthostatic Blood Pressure [ 122/86 Sitting] Orthostatic Blood Pressure [ 126/81 Supine] - Orders/Labs/Meds Orders: Active Orders 24 hr Category Date Time Status Admission Status [Patient Status] [ADT] Stat ADT 08/21/18 19:15 Active EKG Documentation Completion [RC] STAT Care 08/21/18 18:08 Active EKG Documentation Completion [RC] STAT Care 08/21/18 20:00 Active Orthostatic Vital Signs [RC] ASDIRECTED Care 08/21/18 18:43 Active Labs: Laboratory Tests 08/21/18 08/21/18 08/21/18 Range/Units 18:11 18:11 18:11 WBC 14.12 H (4.0-11.0) K/uL RBC 5.16 (4.30-5.90) M/uL Hgb 14.0 (12.0-16.0) g/dL Hct 43.9 (36.0-46.0) % MCV 85.1 (80.0-98.0) fL MCH 27.1 (27.0-32.0) pg MCHC 31.9 (31.0-37.0) g/dL RDW Std Deviation 54.6 (28.0-62.0) fl RDW Coeff of Donna 18 H (11.0-15.0) % Plt Count 288 (150-400) K/uL MPV 9.50 (7.40-12.00) fL Neut % (Auto) 52.5 (48.0-80.0) % Lymph % (Auto) 40.7 H (16.0-40.0) % Dawes % (Auto) 5.5 (0.0-15.0) % Eos % (Auto) 1.1 (0.0-7.0) % Baso % (Auto) 0.2 (0.0-1.5) % Neut # (Auto) 7.4 H (1.4-5.7) K/uL Lymph # (Auto) 5.8 H (0.6-2.4) K/uL Dawes # (Auto) 0.8 (0.0-0.8) K/uL Eos # (Auto) 0.2 (0.0-0.7) K/uL Baso # (Auto) 0.0 (0.0-0.1) K/uL Nucleated RBC % 0.0 /100WBC Nucleated RBCs # 0 K/uL D-Dimer, Quantitative 0.30 (0.0-0.50) mg/L FEU Sodium 138 (136-145) mmol/L Potassium 4.5 (3.5-5.1) mmol/L Chloride 102 (98-107) mmol/L Carbon Dioxide 27.8 (21.0-32.0) mmol/L BUN 18 (7.0-18.0) mg/dL Creatinine 1.1 H (0.6-1.0) mg/dL Est Cr Clr Drug Dosing 43.46 mL/min Estimated GFR (MDRD) 52.4 ml/min Glucose 142 H (74-106) mg/dL Calcium 9.0 (8.5-10.1) mg/dL Total Bilirubin 0.3 (0.2-1.0) mg/dL AST 10 L (15-37) IU/L ALT 13 L (14-63) IU/L Alkaline Phosphatase 79 (46-116) U/L Total Protein 7.4 (6.4-8.2) g/dL Albumin 3.8 (3.4-5.0) g/dL Globulin 3.6 (2.6-4.0) g/dL Albumin/Globulin Ratio 1.1 (0.9-1.6) Urine Color Urine Appearance Urine pH (5.0-8.0) Ur Specific [place] (1.001-1.035) Urine Protein (NEGATIVE) mg/dL Urine Glucose (UA) (NEGATIVE) mg/dL Urine Ketones (NEGATIVE) mg/dL Urine Occult Blood (NEGATIVE) Urine Nitrite (NEGATIVE) Urine Bilirubin (NEGATIVE) Urine Urobilinogen (<2.0) EU/dL Ur Leukocyte Esterase (NEGATIVE) 08/21/18 Range/Units 19:33 WBC (4.0-11.0) K/uL RBC (4.30-5.90) M/uL Hgb (12.0-16.0) g/dL Hct (36.0-46.0) % MCV (80.0-98.0) fL MCH (27.0-32.0) pg MCHC (31.0-37.0) g/dL RDW Std Deviation (28.0-62.0) fl RDW Coeff of Donna (11.0-15.0) % Plt Count (150-400) K/uL MPV (7.40-12.00) fL Neut % (Auto) (48.0-80.0) % Lymph % (Auto) (16.0-40.0) % Dawes % (Auto) (0.0-15.0) % Eos % (Auto) (0.0-7.0) % Baso % (Auto) (0.0-1.5) % Neut # (Auto) (1.4-5.7) K/uL Lymph # (Auto) (0.6-2.4) K/uL Dawes # (Auto) (0.0-0.8) K/uL Eos # (Auto) (0.0-0.7) K/uL Baso # (Auto) (0.0-0.1) K/uL Nucleated RBC % /100WBC Nucleated RBCs # K/uL D-Dimer, Quantitative (0.0-0.50) mg/L FEU Sodium (136-145) mmol/L Potassium (3.5-5.1) mmol/L Chloride (98-107) mmol/L Carbon Dioxide (21.0-32.0) mmol/L BUN (7.0-18.0) mg/dL Creatinine (0.6-1.0) mg/dL Est Cr Clr Drug Dosing mL/min Estimated GFR (MDRD) ml/min Glucose (74-106) mg/dL Calcium (8.5-10.1) mg/dL Total Bilirubin (0.2-1.0) mg/dL AST (15-37) IU/L ALT (14-63) IU/L Alkaline Phosphatase (46-116) U/L Total Protein (6.4-8.2) g/dL Albumin (3.4-5.0) g/dL Globulin (2.6-4.0) g/dL Albumin/Globulin Ratio (0.9-1.6) Urine Color YELLOW Urine Appearance CLEAR Urine pH 7.0 (5.0-8.0) Ur Specific [place] 1.010 (1.001-1.035) Urine Protein NEGATIVE (NEGATIVE) mg/dL Urine Glucose (UA) NEGATIVE (NEGATIVE) mg/dL Urine Ketones NEGATIVE (NEGATIVE) mg/dL Urine Occult Blood NEGATIVE (NEGATIVE) Urine Nitrite NEGATIVE (NEGATIVE) Urine Bilirubin NEGATIVE (NEGATIVE) Urine Urobilinogen 0.2 (<2.0) EU/dL Ur Leukocyte Esterase NEGATIVE (NEGATIVE) Meds: Medications Discontinued Medications Generic Name Dose Route Start Last Admin Trade Name Lucinda PRN Reason Stop Dose Admin Sodium Chloride 1,000 mls @ 999 mls/hr 08/21/18 18:12 08/21/18 18:32 Normal Saline IV 08/21/18 19:12 999 mls/hr STAT ONE Administration Ondansetron HCl 4 mg 08/21/18 18:12 08/21/18 18:31 Zofran IVPUSH 08/21/18 18:13 4 mg ONETIME ONE Administration Departure - Departure Time of Disposition: 20:03 Disposition: Home, Self-Care 01 Clinical Impression: Chest pain Qualifiers: Chest pain type: unspecified Qualified Code(s): R07.9 - Chest pain, unspecified Tailbone injury Qualifiers: Encounter type: initial encounter Qualified Code(s): S39.92XA - Unspecified injury of lower back, initial encounter - Discharge Information Instructions: Chest Wall Pain, [id number], Tailbone Injury, [id number] Referrals: PCP,None [Primary Care Provider] - Forms: ED Department Discharge Additional Instructions: The following information is given to patients seen in the emergency department who are being discharged to home. This information is to outline your options for follow-up care. We provide all patients seen in our emergency department with a follow-up referral. The need for follow-up, as well as the timing and circumstances, are variable depending upon the specifics of your emergency department visit. If you don't have a primary care physician on staff, we will provide you with a referral. We always advise you to contact your personal physician following an emergency department visit to inform them of the circumstance of the visit and for follow-up with them and/or the need for any referrals to a consulting specialist. The emergency department will also refer you to a specialist when appropriate. This referral assures that you have the opportunity for follow-up care with a specialist. All of these measure are taken in an effort to provide you with optimal care, which includes your follow-up. Under all circumstances we always encourage you to contact your private physician who remains a resource for coordinating your care. When calling for follow-up care, please make the office aware that this follow-up is from your recent emergency room visit. If for any reason you are refused follow-up, please contact the [facility] Emergency Department at and asked to speak to the emergency department charge nurse. [facility] [address] [place] [address] [id number] 1. You can alternate Tylenol and ibuprofen as directed for pain and discomfort. 2. Follow-up with your primary care provider and professor of floriculture as discussed. 3. Return to the ED as needed and as discussed. - My Orders Last 24 Hours: My Active Orders 08/21/18 18:08 EKG Documentation Completion [RC] STAT 08/21/18 18:43 Orthostatic Vital Signs [RC] ASDIRECTED 08/21/18 19:15 Admission Status [Patient Status] [ADT] Stat 08/21/18 20:00 EKG Documentation Completion [RC] STAT - Assessment/Plan Last 24 Hours: My Active Orders 08/21/18 18:08 EKG Documentation Completion [RC] STAT 08/21/18 18:43 Orthostatic Vital Signs [RC] ASDIRECTED 08/21/18 19:15 Admission Status [Patient Status] [ADT] Stat 08/21/18 20:00 EKG Documentation Completion [RC] STAT
--- NOTE | 2018-08-21 19:48 | CR ---
INDICATION: Injury. COMPARISON: None. FINDINGS/IMPRESSION: No definite acute fracture identified in the sacrum, coccyx, or bony pelvis. Postoperative changes of spinal fusion are noted at the lumbosacral junction. Dictated by Oc Acuna MD @ 08/21/2018 7:48:10 PM Dictated by: Oc Acuna MD @ 08/21/2018 19:48:26 (Electronically Signed)
--- NOTE | 2018-08-21 19:50 | CR ---
INDICATION: syncope CHEST, ONE VIEW An AP radiograph of the chest was performed. Comparison: No previous studies are currently available for comparison. The lungs appear clear and no pleural effusions are identified. The cardiomediastinal silhouette and pulmonary vasculature appear normal, as do the visualized bones. IMPRESSION: No acute intrathoracic abnormality identified. LEXY CESAR MD [employer] Dictated by: Oc Cesar MD @ 08/21/2018 19:49:27 (Electronically Signed)
[2018-08-21] MEDS ORDERED: Acetaminophen 325 MG Tab PO ONE (20:22)
[2018-08-21 21:52] VITALS: BP 138/89
== END 2018-08-21 20:45 | disposition home or self-care (01) ==
LOC: MW.ED 18:03
DX: R07.9 Chest pain, unspecified (principal); S39.92XA Unspecified injury of lower back, initial encounter; I11.0 Hypertensive heart disease with heart failure; I25.2 Old myocardial infarction; E11.40 Type 2 diabetes mellitus with diabetic neuropathy, unspecified; Z88.8 Allergy status to other drugs, medicaments and biological substances; Z88.0 Allergy status to penicillin; Z79.899 Other long term (current) drug therapy; Z87.891 Personal history of nicotine dependence; Z79.82 Long term (current) use of aspirin; Z79.4 Long term (current) use of insulin; Z79.01 Long term (current) use of anticoagulants; W10.9XXA Fall (on) (from) unspecified stairs and steps, initial encounter
CPT/HCPCS: 36415; 71045; 72220; 80053; 81003; 85025; 85379; 93005; 96361; 96374; 99284; J2405; J7040; 99283

== ENCOUNTER 2018-10-25 09:54 | Observation (INO) | payer MEDICAID ==
[2018-10-25] MEDS ORDERED: Sodium Chloride 0.9% 10 ML Syringe FLUSH PRN (10:01)
[2018-10-25] MEDS ORDERED: Sodium Chloride 0.9% 2.5 ML Syringe FLUSH PRN (10:01)
--- NOTE | 2018-10-25 10:20 | EDM.PDOC ---
ED HPI GENERAL MEDICAL PROBLEM - General Chief Complaint: Chest Pain Stated Complaint: CHEST PAIN Time Seen by Provider: 10/25/18 10:11 Source of Information: Reports: Patient History Limitations: Reports: No Limitations - History of Present Illness INITIAL COMMENTS - FREE TEXT/NARRATIVE: HISTORY AND PHYSICAL: History of present illness: Patient is a 53-year-old female here with complaint of chest pain. Past medical history of CAD with stent, CHF, diabetes. She reports chest pain to approximately 2 hours prior to arrival to the ED, reports that it woke her up from her sleep. She reports that she has been having shortness of breath but this has been going on for 3 weeks and recently had her Lasix increased. She states pain comes and goes but is not worse with activity. He states is a sharp pain on the left side of her chest that is tender when pushed on. She denies any recent fevers, chills, headache, abdominal pain, nausea, vomiting, diarrhea. Review of systems: As per history of present illness and below otherwise all systems reviewed and negative. Past medical history: As per history of present illness and as reviewed below otherwise noncontributory. Surgical history: As per history of present illness and as reviewed below otherwise noncontributory. Social history: No reported history of drug or alcohol abuse. Family history: As per history of present illness and as reviewed below otherwise noncontributory. Physical exam: General: Patient sitting comfortably in no acute distress and nontoxic appearing HEENT: Atraumatic, normocephalic, pupils reactive, negative for conjunctival pallor or scleral icterus, mucous membranes moist, throat clear, neck supple, nontender, trachea midline. No meningeal signs. Lungs: Clear to auscultation, breath sounds equal bilaterally, left anterior chest wall tender to palpation Heart: S1S2, regular, negative for clicks, rubs, or overt murmur. Abdomen: Soft, nondistended, nontender. Negative for masses or hepatosplenomegaly. Negative for costovertebral tenderness. No rigidity, rebound , guarding. Pelvis: Stable nontender. Genitourinary: Deferred. Rectal: Deferred. Extremities: Atraumatic, negative for cords or calf pain. Neurovascular unremarkable. Neuro: Awake, alert, oriented. Cranial nerves II through XII unremarkable. Cerebellum unremarkable. Motor and sensory unremarkable throughout. Exam nonfocal. Notes: Diagnostics: CBC, CMP, troponin, EKG, chest x-ray Therapeutics: 1 inch Nitropaste Prescriptions: Impression: Chest pain r/o ACS Plan: Discussed with Dr. Mayes, patient admitted to observation on telemetry for r/o ACS Definitive disposition and diagnosis as appropriate pending reevaluation and review of above. Chest Pain Score (Numeric/FACES): 3 - Related Data Allergies Allergy/AdvReac Type Severity Reaction Status Date / Time carbamazepine [From Tegretol] Allergy Blurred Verified 10/25/18 10:09 Vision ceftriaxone [From Rocephin] Allergy Respiratory Verified 10/25/18 10:09 Distress Penicillins Allergy Cannot Verified 10/25/18 10:09 Remember Home Meds: Home Meds Aspirin [Halfprin] 81 mg PO DAILY 08/19/18 [History] Clopidogrel [Plavix] 75 mg PO DAILY 08/19/18 [History] Insulin Glargine/Lixisenatide [Soliqua 100 Unit-33 Mcg/ml Pen] 35 units SQ DAILY 08/19/18 [History] Pregabalin [Lyrica] 300 mg PO BID 08/19/18 [History] Furosemide [Lasix] 20 mg PO ONETIME 10/25/18 [History] Hydrocodone/Acetaminophen [[place] 5-325 Tablet] 1 tab PO ASDIRECTED PRN 10/25/18 [History] Rosuvastatin [Crestor] 20 mg PO DAILY 10/25/18 [History] Past Medical History HEENT History: Reports: None Cardiovascular History: Reports: Heart Failure, Hypertension, [place] Respiratory History: Reports: None Gastrointestinal History: Reports: None Genitourinary History: Reports: None Musculoskeletal History: Reports: Back Pain, Chronic Neurological History: Reports: Neuropathy, Diabetic Endocrine/Metabolic History: Reports: Diabetes, Type II, Obesity/BMI 30+ Hematologic History: Reports: None Immunologic History: Reports: None Oncologic (Cancer) History: Reports: None Dermatologic History: Reports: None - Infectious Disease History Infectious Disease History: Reports: None Social & Family History - Family History Family Medical History: Noncontributory - Caffeine Use Caffeine Use: Reports: None - Living Situation & Occupation Living situation: Reports: Single, with Family Occupation: Unemployed ED ROS GENERAL - Review of Systems Review Of Systems: ROS reveals no pertinent complaints other than HPI. ED EXAM, GENERAL - Physical Exam Exam: See Below (See dictation) Course - Vital Signs Last Recorded V/S: Last Vital Signs Temp 98.4 F 10/25/18 10:16 Pulse 80 10/25/18 11:17 Resp 19 10/25/18 11:17 BP 107/60 10/25/18 11:17 Pulse Ox 93 L 10/25/18 11:17 - Orders/Labs/Meds Orders: Active Orders 24 hr Category Date Time Status Admission Status [Patient Status] [ADT] Stat ADT 10/25/18 11:35 Active Cardiac Monitoring [RC] . DIRECTED Care 10/25/18 10:01 Active EKG Documentation Completion [RC] STAT Care 10/25/18 10:02 Active EKG Documentation Completion [RC] STAT Care 10/25/18 11:10 Active HCG QUALITATIVE,URINE [URCHEM] Stat Lab 10/25/18 10:02 Ordered UA W/MICROSCOPIC [URIN] Stat Lab 10/25/18 10:02 Ordered Sodium Chloride 0.9% [Saline Flush] Med 10/25/18 10:01 Active 10 ml FLUSH ASDIRECTED PRN Sodium Chloride 0.9% [Saline Flush] Med 10/25/18 10:01 Active 2.5 ml FLUSH ASDIRECTED PRN Saline Lock Insert [OM.PC] Stat Oth 10/25/18 10:01 Ordered Medication Orders Acetaminophen (Tylenol) 650 mg PO Q4H PRN PRN Reason: Pain (Mild 1-3)/fever Albuterol (Proventil Neb Soln) 2.5 mg NEB Q2H PRN PRN Reason: Shortness Of Breath/wheezing Albuterol/Ipratropium (Duoneb 3.0-0.5 Mg/3 Ml) 3 ml NEB Q4HRRT PRN PRN Reason: Shortness Of Breath/wheezing Aspirin (Halfprin) 81 mg PO DAILY [facility] Clopidogrel Bisulfate (Plavix) 75 mg PO DAILY [facility] Enoxaparin Sodium (Lovenox) 40 mg SUBCUT Q24H [facility] Last Admin: 10/25/18 12:35 Dose: 40 mg Insulin Aspart (Novolog) 0 unit SUBCUT TIDAC LIANA; Protocol Morphine Sulfate (Morphine) 2 mg IVPUSH Q2H PRN PRN Reason: Pain (severe 7-10) Stop: 10/26/18 11:48 Last Admin: 10/25/18 12:47 Dose: 2 mg Oxycodone HCl (Oxycodone) 5 mg PO Q4H PRN PRN Reason: Pain (moderate 4-6) Last Admin: 10/25/18 12:02 Dose: 5 mg Insulin Glargine/Lixisenatide [ Soliqua 100 Unit-33 Mcg/Ml] 1 each SUBCUT DAILY LIANA Rosuvastatin Calcium (Crestor) 20 mg PO DAILY L[facility]NA Sodium Chloride (Saline Flush) 10 ml FLUSH ASDIRECTED PRN PRN Reason: Keep Vein Open Last Admin: 10/25/18 10:33 Dose: 10 ml Sodium Chloride (Saline Flush) 2.5 ml FLUSH ASDIRECTED PRN PRN Reason: Keep Vein Open Last Admin: 10/25/18 10:33 Dose: 2.5 ml Labs: Laboratory Tests 10/25/18 10/25/18 10/25/18 Range/Units 10:00 10:00 10:00 WBC 11.47 H (4.0-11.0) K/uL RBC 4.68 (4.30-5.90) M/uL Hgb 13.3 (12.0-16.0) g/dL Hct 42.0 (36.0-46.0) % MCV 89.7 (80.0-98.0) fL MCH 28.4 (27.0-32.0) pg MCHC 31.7 (31.0-37.0) g/dL RDW Std Deviation 50.7 (28.0-62.0) fl RDW Coeff of Donna 16 H (11.0-15.0) % Plt Count 200 (150-400) K/uL MPV 9.90 (7.40-12.00) fL Neut % (Auto) 57.2 (48.0-80.0) % Lymph % (Auto) 31.6 (16.0-40.0) % [place] % (Auto) 7.1 (0.0-15.0) % Eos % (Auto) 4.0 (0.0-7.0) % Baso % (Auto) 0.1 (0.0-1.5) % Neut # (Auto) 6.6 H (1.4-5.7) K/uL Lymph # (Auto) 3.6 H (0.6-2.4) K/uL [place] # (Auto) 0.8 (0.0-0.8) K/uL Eos # (Auto) 0.5 (0.0-0.7) K/uL Baso # (Auto) 0.0 (0.0-0.1) K/uL Nucleated RBC % 0.0 /100WBC Nucleated RBCs # 0 K/uL INR 0.98 Sodium 135 L (136-145) mmol/L Potassium 4.4 (3.5-5.1) mmol/L Chloride 102 (98-107) mmol/L Carbon Dioxide 21.4 (21.0-32.0) mmol/L BUN 7 (7.0-18.0) mg/dL Creatinine 0.9 (0.6-1.0) mg/dL Est Cr Clr Drug Dosing 52.52 mL/min Estimated GFR (MDRD) > 60.0 ml/min Glucose 278 H (74-106) mg/dL Calcium 8.6 (8.5-10.1) mg/dL Total Bilirubin 0.2 (0.2-1.0) mg/dL AST 12 L (15-37) IU/L ALT 17 (14-63) IU/L Alkaline Phosphatase 75 (46-116) U/L Troponin I < 0.050 (0.000-0.056) ng/mL B-Natriuretic Peptide (<100) PG/ML Total Protein 6.8 (6.4-8.2) g/dL Albumin 3.2 L (3.4-5.0) g/dL Globulin 3.6 (2.6-4.0) g/dL Albumin/Globulin Ratio 0.9 (0.9-1.6) Lipase 102 (73-393) U/L TSH 3rd Generation (0.36-3.74) uIU/mL 10/25/18 10/25/18 Range/Units 10:00 10:00 WBC (4.0-11.0) K/uL RBC (4.30-5.90) M/uL Hgb (12.0-16.0) g/dL Hct (36.0-46.0) % MCV (80.0-98.0) fL MCH (27.0-32.0) pg MCHC (31.0-37.0) g/dL RDW Std Deviation (28.0-62.0) fl RDW Coeff of Donna (11.0-15.0) % Plt Count (150-400) K/uL MPV (7.40-12.00) fL Neut % (Auto) (48.0-80.0) % Lymph % (Auto) (16.0-40.0) % [place] % (Auto) (0.0-15.0) % Eos % (Auto) (0.0-7.0) % Baso % (Auto) (0.0-1.5) % Neut # (Auto) (1.4-5.7) K/uL Lymph # (Auto) (0.6-2.4) K/uL [place] # (Auto) (0.0-0.8) K/uL Eos # (Auto) (0.0-0.7) K/uL Baso # (Auto) (0.0-0.1) K/uL Nucleated RBC % /100WBC Nucleated RBCs # K/uL INR Sodium (136-145) mmol/L Potassium (3.5-5.1) mmol/L Chloride (98-107) mmol/L Carbon Dioxide (21.0-32.0) mmol/L BUN (7.0-18.0) mg/dL Creatinine (0.6-1.0) mg/dL Est Cr Clr Drug Dosing mL/min Estimated GFR (MDRD) ml/min Glucose (74-106) mg/dL Calcium (8.5-10.1) mg/dL Total Bilirubin (0.2-1.0) mg/dL AST (15-37) IU/L ALT (14-63) IU/L Alkaline Phosphatase (46-116) U/L Troponin I (0.000-0.056) ng/mL B-Natriuretic Peptide 92 (<100) PG/ML Total Protein (6.4-8.2) g/dL Albumin (3.4-5.0) g/dL Globulin (2.6-4.0) g/dL Albumin/Globulin Ratio (0.9-1.6) Lipase (73-393) U/L TSH 3rd Generation 2.21 (0.36-3.74) uIU/mL Meds: Medications Generic Name Dose Route Start Last Admin Trade Name Freq PRN Reason Stop Dose Admin Acetaminophen 650 mg 10/25/18 11:47 Tylenol PO Q4H PRN Pain (Mild 1-3)/fever Albuterol 2.5 mg 10/25/18 11:47 Proventil Neb Soln NEB Q2H PRN Shortness Of Breath/wheezing Albuterol/Ipratropium 3 ml 10/25/18 11:47 Duoneb 3.0-0.5 Mg/3 Ml NEB Q4HRRT PRN Shortness Of Breath/wheezing Aspirin 81 mg 10/26/18 09:00 Halfprin PO DAILY [facility] Clopidogrel Bisulfate 75 mg 10/26/18 09:00 Plavix PO DAILY [facility] Enoxaparin Sodium 40 mg 10/25/18 12:15 10/25/18 12:35 Lovenox SUBCUT 40 mg Q24H LIANA Administration Insulin Aspart 0 unit 10/25/18 17:00 Novolog SUBCUT TIDAC [facility] Protocol Morphine Sulfate 2 mg 10/25/18 11:47 10/25/18 12:47 Morphine IVPUSH 10/26/18 11:48 2 mg Q2H PRN Administration Pain (severe 7-10) Oxycodone HCl 5 mg 10/25/18 11:47 10/25/18 12:02 Oxycodone PO 5 mg Q4H PRN Administration Pain (moderate 4-6) Insulin Glargine/ 1 each 10/26/18 09:00 Lixisenatide [ SUBCUT Soliqua 100 Unit-33 DAILY LIANA Mcg/Ml] Rosuvastatin Calcium 20 mg 10/26/18 09:00 Crestor PO DAILY [facility] Sodium Chloride 10 ml 10/25/18 10:01 10/25/18 10:33 Saline Flush FLUSH 10 ml ASDIRECTED PRN Administration Keep Vein Open Sodium Chloride 2.5 ml 10/25/18 10:01 10/25/18 10:33 Saline Flush FLUSH 2.5 ml ASDIRECTED PRN Administration Keep Vein Open Discontinued Medications Generic Name Dose Route Start Last Admin Trade Name Lucidna PRN Reason Stop Dose Admin Furosemide 40 mg 10/25/18 14:17 10/25/18 14:35 Lasix IVPUSH 10/25/18 14:18 40 mg NOW ONE Administration Sodium Chloride 500 mls @ 999 mls/hr 10/25/18 10:44 10/25/18 10:45 Normal Saline IV 10/25/18 11:14 999 mls/hr .Bolus ONE Administration Nitroglycerin 1 gm 10/25/18 10:25 10/25/18 10:33 Nitro-Bid 2% TOP 10/25/18 10:26 1 gm ONETIME ONE Administration Departure - Departure Time of Disposition: 15:17 Disposition: Refer to Observation Condition: Good Clinical Impression: Chest pain Qualifiers: Chest pain type: unspecified Qualified Code(s): R07.9 - Chest pain, unspecified - My Orders Last 24 Hours: My Active Orders 10/25/18 10:01 Cardiac Monitoring [RC] . DIRECTED Sodium Chloride 0.9% [Saline Flush] 10 ml FLUSH ASDIRECTED PRN Sodium Chloride 0.9% [Saline Flush] 2.5 ml FLUSH ASDIRECTED PRN Saline Lock Insert [OM.PC] Stat 10/25/18 10:02 EKG Documentation Completion [RC] STAT HCG QUALITATIVE,URINE [URCHEM] Stat UA W/MICROSCOPIC [URIN] Stat 10/25/18 11:10 EKG Documentation Completion [RC] STAT 10/25/18 11:35 Admission Status [Patient Status] [ADT] Stat - Assessment/Plan Last 24 Hours: My Active Orders 10/25/18 10:01 Cardiac Monitoring [RC] . DIRECTED Sodium Chloride 0.9% [Saline Flush] 10 ml FLUSH ASDIRECTED PRN Sodium Chloride 0.9% [Saline Flush] 2.5 ml FLUSH ASDIRECTED PRN Saline Lock Insert [OM.PC] Stat 10/25/18 10:02 EKG Documentation Completion [RC] STAT HCG QUALITATIVE,URINE [URCHEM] Stat UA W/MICROSCOPIC [URIN] Stat 10/25/18 11:10 EKG Documentation Completion [RC] STAT 10/25/18 11:35 Admission Status [Patient Status] [ADT] Stat
[2018-10-25] MEDS ORDERED: Nitroglycerin 2% Oint 1 GM UD Packet TOP ONE (10:25)
[2018-10-25] MEDS ORDERED: Sodium Chloride 0.9% 500 ML IV ONE (10:44)
[2018-10-25] MEDS ORDERED: Sodium Chloride 0.9% 500 ML IV SCH (10:45)
[2018-10-25 11:04] LABS: CHLORIDE,CL 102 mmol/L (98-107); SODIUM,NA 135 mmol/L (136-145)
--- NOTE | 2018-10-25 11:13 | CR ---
EXAMINATION: Portable chest radiograph. HISTORY: Chest pain. FINDINGS: The trachea is midline. The cardiomediastinal silhouette is within normal limits. No pulmonary infiltrates, or pneumothorax. Possible trace right pleural effusion. Osseous structures appear unremarkable. IMPRESSION: 1. Possible trace right pleural effusion otherwise unremarkable chest radiograph.
[2018-10-25] MEDS ORDERED: Acetaminophen 325 MG Tab PO PRN (11:47)
[2018-10-25] MEDS ORDERED: Albuterol 0.083% 2.5 MG/3 ML Neb Soln NEB PRN (11:47)
[2018-10-25] MEDS ORDERED: oxyCODONE 5 MG Tab PO PRN (11:47)
[2018-10-25] MEDS ORDERED: Albuterol/Ipratropium 3.0-0.5 MG/3 ML Neb Soln NEB PRN (11:47)
--- NOTE | 2018-10-25 12:16 | PCM.HP ---
H&P History of Present Illness - General Date of Service: 10/25/18 Admit Problem/Dx: Admission Diagnosis/Problem Admission Diagnosis/Problem Chest pain - History of Present Illness Initial Comments - Free Text/Narative: 53 y/o female with history of CAD s/p stent placement, DM2 who presented to the ED complaining of chest pain. States that chest pain has been going on since this morning. Located on left chest area. Tender to palpation. Rates pain 6/10, constant, worse with palpation. Denies any trauma to chest. No recent heavy lifting or falls. Denies diaphoresis, radiation to neck and left arm. No nausea or vomiting. Patient states she has been taking her medications as indicated. Has been having a cough for the past few days. No fevers. No sick contacts. Chest Pain Score (Numeric/FACES): 3 - Related Data Allergies/Adverse Reactions: Allergies Allergy/AdvReac Type Severity Reaction Status Date / Time carbamazepine [From Tegretol] Allergy Blurred Verified 10/25/18 10:09 Vision ceftriaxone [From Rocephin] Allergy Respiratory Verified 10/25/18 10:09 Distress Penicillins Allergy Cannot Verified 10/25/18 10:09 Remember Home Medications: Home Meds Aspirin [Halfprin] 81 mg PO DAILY 08/19/18 [History] Clopidogrel [Plavix] 75 mg PO DAILY 08/19/18 [History] Insulin Glargine/Lixisenatide [Soliqu[place] 100 Unit-33 Mcg/ml Pen] 35 units SQ DAILY 08/19/18 [History] Pregabalin [Lyrica] 300 mg PO BID 08/19/18 [History] Furosemide [Lasix] 20 mg PO ONETIME 10/25/18 [History] Hydrocodone/Acetaminophen [[place] 5-325 Tablet] 1 tab PO ASDIRECTED PRN 10/25/18 [History] Rosuvastatin [Crestor] 20 mg PO DAILY 10/25/18 [History] Past Medical History HEENT History: Reports: None Cardiovascular History: Reports: Heart Failure, Hypertension, [place] Other Cardiovascular History: Heart Stent x2 in Jan 2018 Respiratory History: Reports: None Gastrointestinal History: Reports: None Genitourinary History: Reports: None Musculoskeletal History: Reports: Back Pain, Chronic Neurological History: Reports: Neuropathy, Diabetic Endocrine/Metabolic History: Reports: Diabetes, Type II, Obesity/BMI 30+ Hematologic History: Reports: None Immunologic History: Reports: None Oncologic (Cancer) History: Reports: None Dermatologic History: Reports: None - Infectious Disease History Infectious Disease History: Reports: None Social & Family History - Family History Family Medical History: Noncontributory - Tobacco Use Smoking Status *Q: Current Every Day Smoker Years of Tobacco use: 30 Packs/Tins Daily: 1 Used Tobacco, but Quit: Yes Month/Year Tobacco Last Used: 10/22/2018 Second Hand Smoke Exposure: No - Caffeine Use Caffeine Use: Reports: None - Recreational Drug Use Recreational Drug Use: No - Living Situation & Occupation Living situation: Reports: Single, with Family Occupation: Unemployed H&P Review of Systems - Review of Systems: Review Of Systems: ROS reveals no pertinent complaints other than HPI. Exam - Exam Exam: See Below - Vital Signs Vital Signs: Last Vital Signs Temp 36.9 C 10/25/18 10:16 Pulse 80 10/25/18 11:17 Resp 19 10/25/18 11:17 BP 107/60 10/25/18 11:17 Pulse Ox 93 L 10/25/18 11:17 Weight: 79.379 kg - Exam General: Alert, Oriented, Cooperative HEENT: Posterior Pharynx Clear Lungs: Clear to Auscultation, Normal Respiratory Effort. No: Crackles, Wheezing Cardiovascular: Regular Rate, Regular Rhythm, Other (chest is tender to palpation in left upper area. ) GI/Abdominal Exam: Normal Bowel Sounds, Soft, Non-Tender, No Distention Extremities: Normal Inspection, No Pedal Edema Skin: Warm, Dry Neuro Extensive - Mental Status: Alert, Oriented x3 - Patient Data Lab Results Last 24 hrs: Laboratory Results - last 24 hr 10/25/18 10/25/18 10/25/18 Range/Units 10:00 10:00 10:00 WBC 11.47 H (4.0-11.0) K/uL RBC 4.68 (4.30-5.90) M/uL Hgb 13.3 (12.0-16.0) g/dL Hct 42.0 (36.0-46.0) % MCV 89.7 (80.0-98.0) fL MCH 28.4 (27.0-32.0) pg MCHC 31.7 (31.0-37.0) g/dL RDW Std Deviation 50.7 (28.0-62.0) fl RDW Coeff of Donna 16 H (11.0-15.0) % Plt Count 200 (150-400) K/uL MPV 9.90 (7.40-12.00) fL Neut % (Auto) 57.2 (48.0-80.0) % Lymph % (Auto) 31.6 (16.0-40.0) % [place] % (Auto) 7.1 (0.0-15.0) % Eos % (Auto) 4.0 (0.0-7.0) % Baso % (Auto) 0.1 (0.0-1.5) % Neut # (Auto) 6.6 H (1.4-5.7) K/uL Lymph # (Auto) 3.6 H (0.6-2.4) K/uL [place] # (Auto) 0.8 (0.0-0.8) K/uL Eos # (Auto) 0.5 (0.0-0.7) K/uL Baso # (Auto) 0.0 (0.0-0.1) K/uL Nucleated RBC % 0.0 /100WBC Nucleated RBCs # 0 K/uL INR 0.98 Sodium 135 L (136-145) mmol/L Potassium 4.4 (3.5-5.1) mmol/L Chloride 102 (98-107) mmol/L Carbon Dioxide 21.4 (21.0-32.0) mmol/L BUN 7 (7.0-18.0) mg/dL Creatinine 0.9 (0.6-1.0) mg/dL Est Cr Clr Drug Dosing 52.52 mL/min Estimated GFR (MDRD) > 60.0 ml/min Glucose 278 H (74-106) mg/dL Calcium 8.6 (8.5-10.1) mg/dL Total Bilirubin 0.2 (0.2-1.0) mg/dL AST 12 L (15-37) IU/L ALT 17 (14-63) IU/L Alkaline Phosphatase 75 (46-116) U/L Troponin I < 0.050 (0.000-0.056) ng/mL Total Protein 6.8 (6.4-8.2) g/dL Albumin 3.2 L (3.4-5.0) g/dL Globulin 3.6 (2.6-4.0) g/dL Albumin/Globulin Ratio 0.9 (0.9-1.6) Lipase 102 (73-393) U/L Result Diagrams: 10/25/18 10:00 10/25/18 10:00 Problem List Initiated/Reviewed/Updated: Yes Orders Last 24hrs: Active Orders 24 hr Category Date Time Status Admission Status [Patient Status] [ADT] Stat ADT 10/25/18 11:35 Active Antiembolic Devices [RC] PER UNIT ROUTINE Care 10/25/18 11:49 Active Bedrest Bathroom Privileges [RC] ASDIRECTED Care 10/25/18 11:47 Active Cardiac Monitoring [RC] . DIRECTED Care 10/25/18 10:01 Active EKG Documentation Completion [RC] STAT Care 10/25/18 10:02 Active EKG Documentation Completion [RC] STAT Care 10/25/18 11:10 Active Height and Weight [RC] DAILY Care 10/25/18 11:47 Active Intake and Output [RC] QSHIFT Care 10/25/18 11:47 Active Oxygen Therapy [RC] PRN Care 10/25/18 11:47 Active POC Glucose [Blood Glucose Check, Bedside] [RC] Care 10/25/18 12:10 Ordered WITHMEALSANDBED RT Aerosol Therapy [RC] ASDIRECTED Care 10/25/18 11:49 Active VTE/DVT Education [RC] PER UNIT ROUTINE Care 10/25/18 11:47 Active Vital Signs [RC] Q4H Care 10/25/18 11:47 Active [place] [employer] Diet [DIET] Diet 10/25/18 Breakfast Active B-TYPE NATRIURETIC PEPTIDE,BNP [CHEM] Routine Lab 10/25/18 10:00 Received HCG QUALITATIVE,URINE [URCHEM] Stat Lab 10/25/18 10:02 Ordered TROPONIN I [CHEM] Q6H Lab 10/25/18 17:00 Ordered TROPONIN I [CHEM] Q6H Lab 10/25/18 23:00 Ordered TSH [CHEM] Routine Lab 10/25/18 10:00 Received UA W/MICROSCOPIC [URIN] Stat Lab 10/25/18 10:02 Ordered Acetaminophen [Tylenol] Med 10/25/18 11:47 Active 650 mg PO Q4H PRN Albuterol [Proventil Neb Soln] Med 10/25/18 11:47 Active 2.5 mg NEB Q2H PRN Albuterol/Ipratropium [DuoNeb 3.0-0.5 MG/3 ML] Med 10/25/18 11:47 Active 3 ml NEB Q4HRRT PRN Aspirin [Halfprin] Med 10/26/18 09:00 Ordered 81 mg PO DAILY Clopidogrel [Plavix] Med 10/26/18 09:00 Ordered 75 mg PO DAILY Enoxaparin [Lovenox] Med 10/25/18 12:15 Ordered 40 mg SUBCUT Q24H Insulin Aspart [NovoLOG] Med 10/25/18 17:00 Active See Protocol SUBCUT TIDAC Insulin Glargine/Lixisenatide [Soliqua 100 Unit-33 Mcg/ Med 10/26/18 09:00 Ordered ml Pen] 35 units SQ DAILY Morphine Med 10/25/18 11:47 Active 2 mg IVPUSH Q2H PRN Rosuvastatin [Crestor] Med 10/26/18 09:00 Ordered 20 mg PO DAILY Sodium Chloride 0.9% [Saline Flush] Med 10/25/18 10:01 Active 10 ml FLUSH ASDIRECTED PRN Sodium Chloride 0.9% [Saline Flush] Med 10/25/18 10:01 Active 2.5 ml FLUSH ASDIRECTED PRN oxyCODONE Med 10/25/18 11:47 Active 5 mg PO Q4H PRN Saline Lock Insert [OM.PC] Stat Oth 10/25/18 10:01 Ordered Sequential Compression Device [OM.PC] Per Unit Routine Oth 10/25/18 11:48 Ordered Resuscitation Status Routine Resus Stat 10/25/18 11:47 Ordered Medication Orders Acetaminophen (Tylenol) 650 mg PO Q4H PRN PRN Reason: Pain (Mild 1-3)/fever Albuterol (Proventil Neb Soln) 2.5 mg NEB Q2H PRN PRN Reason: Shortness Of Breath/wheezing Albuterol/Ipratropium (Duoneb 3.0-0.5 Mg/3 Ml) 3 ml NEB Q4HRRT PRN PRN Reason: Shortness Of Breath/wheezing Aspirin (Halfprin) 81 mg PO DAILY [facility] Clopidogrel Bisulfate (Plavix) 75 mg PO DAILY [facility] Enoxaparin Sodium (Lovenox) 40 mg SUBCUT Q24H LIANA Insulin Aspart (Novolog) 0 unit SUBCUT TIDAC LIANA; Protocol Morphine Sulfate (Morphine) 2 mg IVPUSH Q2H PRN PRN Reason: Pain (severe 7-10) Stop: 10/26/18 11:48 Non-Formulary Medication (Insulin Glargine/Lixisenatide [Soliqua 100 Unit-33 Mcg /Ml Pen]) 35 units SQ DAILY L[facility]NA Oxycodone HCl (Oxycodone) 5 mg PO Q4H PRN PRN Reason: Pain (moderate 4-6) Last Admin: 10/25/18 12:02 Dose: 5 mg Rosuvastatin Calcium (Crestor) 20 mg PO DAILY [facility] Sodium Chloride (Saline Flush) 10 ml FLUSH ASDIRECTED PRN PRN Reason: Keep Vein Open Last Admin: 10/25/18 10:33 Dose: 10 ml Sodium Chloride (Saline Flush) 2.5 ml FLUSH ASDIRECTED PRN PRN Reason: Keep Vein Open Last Admin: 10/25/18 10:33 Dose: 2.5 ml Assessment/Plan Comment:: A: 1. atypical chest pain, r/o ACS 2. Hyperglycemia 3. Tobacco abuse 4. PMH CAD s/p stent placement, DM2 P: 1. Atypical chest pain- likely musculoskeletal since tender to palpation. However, she is high risk due to cardiac history. Will trend troponins, Telemetry, Nitroglycerine PRN, Morphine. Will resume home medications. 2. Hyperglycemia- will continue her antidiabetic medications and monitor BGL and correct with ISS. 3. Tobacco abuse- patient currently quitting. Has nicotine patch. Will need one tomorrow. Dispo: likely dc tomorrow
[2018-10-25] MEDS: Enoxaparin 40 MG/0.4 ML Syringe SUBCUT SCH (12:35)
[2018-10-25] MEDS: Morphine 10 MG/ML Syringe IVPUSH PRN ×2 (12:47→15:51)
[2018-10-25] MEDS ORDERED: Furosemide 40 MG/4 ML VIAL IVPUSH ONE (14:17)
[2018-10-25] MEDS: Insulin Aspart 100 Units/ML 3 ML Pen SUBCUT SCH (17:10)
[2018-10-25] MEDS: Acetaminophen/HYDROcodone 325-10 MG Tab PO PRN (17:14)
[2018-10-25] MEDS: Pregabalin 50 MG Cap PO SCH (20:31)
[2018-10-26] MEDS: Acetaminophen/HYDROcodone 325-10 MG Tab PO PRN ×3 (01:15→17:06)
[2018-10-26] MEDS: Insulin Aspart 100 Units/ML 3 ML Pen SUBCUT SCH ×3 (06:36→17:10)
[2018-10-26] MEDS ORDERED: Ketorolac 30 MG/ML SDV IVPUSH ONE (07:55)
[2018-10-26] MEDS: Pregabalin 50 MG Cap PO SCH ×2 (08:02→19:59)
[2018-10-26] MEDS ORDERED: INSULIN GLARGINE SUBCUT SCH (09:00)
[2018-10-26] MEDS ORDERED: Clopidogrel 75 MG Tab PO SCH (09:00)
[2018-10-26] MEDS ORDERED: Rosuvastatin 10 MG Tab PO SCH (09:00)
[2018-10-26] MEDS ORDERED: Aspirin 81 MG Tab.EC PO SCH (09:00)
[2018-10-26] MEDS ORDERED: LIXISENATIDE SUBCUT SCH (09:00)
--- NOTE | 2018-10-26 11:00 | PCM.DCSUM1 ---
Discharge Summary - Hospital Course Free Text/Narrative:: 53 y/o female with history of CAD, DM2 to presented to the ER complaining of left chest pain. She was admitted for atypical chest pain, ACS rule out. Serial troponins were negative. EKG did not show any ST elevation, depressions. The pain was reproducible with palpation. She was reassured that it was unlikely the pain was cardiac and that it was more musculoskeletal in origin. She was discharged home with instructions to follow-up with her PCP. - Discharge Data Discharge Date: 10/26/18 Discharge Disposition: Home, Self-Care 01 Condition: Good - Patient Instructions Diet: Heart Healthy Diet Activity: As Tolerated Notify Provider of: Fever, Increased Pain, Swelling and Redness, Nausea and/or Vomiting - Discharge Plan *PRESCRIPTION DRUG MONITORING PROGRAM REVIEWED*: Not Applicable *COPY OF PRESCRIPTION DRUG MONITORING REPORT IN PATIENT MEGAN: Not Applicable Home Medications: Home Meds Aspirin [Halfprin] 81 mg PO DAILY 08/19/18 [History] Clopidogrel [Plavix] 75 mg PO DAILY 08/19/18 [History] Insulin Glargine/Lixisenatide [Soliqua 100 Unit-33 Mcg/ml Pen] 35 units SQ DAILY 08/19/18 [History] Pregabalin [Lyrica] 300 mg PO BID 08/19/18 [History] ALPRAZolam [Alprazolam] 0.5 mg PO Q8H PRN 10/25/18 [History] Furosemide [Lasix] 40 mg PO DAILY PRN 10/25/18 [History] Hydrocodone/Acetaminophen [Hydrocodon-Acetaminophn 10-325] 1 tab PO Q8HR PRN [History] Metoprolol Tartrate [Lopressor] 50 mg PO DAILY 10/25/18 [History] Nitroglycerin 0.4 mg SL ASDIRECTED PRN 10/25/18 [History] Ondansetron [Zofran] 4 mg PO Q8H PRN 10/25/18 [History] Potassium Chloride [Klor-Con M20] 20 meq PO DAILY PRN 10/25/18 [History] Rosuvastatin [Crestor] 40 mg PO DAILY 10/25/18 [History] Valsartan 40 mg PO DAILY 10/25/18 [History] Acetaminophen [Tylenol] 650 mg PO Q4H PRN tablet 10/26/18 [Rx] Patient Handouts: Nonspecific Chest Pain, [id number] Referrals: [facility] [Outside] Ivet Maza VOLUNTEER SERVICES DIRECTOR [Nurse Practitioner] - 11/01/18 8:30 am - Discharge Summary/Plan Comment DC Time >30 min.: No - Patient Data Vitals - Most Recent: Last Vital Signs Temp 35.6 C 10/26/18 08:00 Pulse 79 10/26/18 04:00 Resp 18 10/26/18 08:00 BP 111/68 10/26/18 08:02 Pulse Ox 93 L 10/26/18 08:00 Weight - Most Recent: 82.69 kg I&O - Last 24 hours: Intake & Output 10/25/18 10/26/18 10/26/18 22:59 06:59 14:59 Intake Total 600 940 Output Total 900 1600 Balance -300 -660 Lab Results - Last 24 hrs: Laboratory Results - last 24 hr 10/25/18 10/25/18 10/25/18 Range/Units 10:00 10:00 10:00 WBC (4.0-11.0) K/uL RBC (4.30-5.90) M/uL Hgb (12.0-16.0) g/dL Hct (36.0-46.0) % MCV (80.0-98.0) fL MCH (27.0-32.0) pg MCHC (31.0-37.0) g/dL RDW Std Deviation (28.0-62.0) fl RDW Coeff of Donna (11.0-15.0) % Plt Count (150-400) K/uL MPV (7.40-12.00) fL Nucleated RBC % /100WBC Nucleated RBCs # K/uL Sodium 135 L (136-145) mmol/L Potassium 4.4 (3.5-5.1) mmol/L Chloride 102 (98-107) mmol/L Carbon Dioxide 21.4 (21.0-32.0) mmol/L BUN 7 (7.0-18.0) mg/dL Creatinine 0.9 (0.6-1.0) mg/dL Est Cr Clr Drug Dosing 52.52 mL/min Estimated GFR (MDRD) > 60.0 ml/min Glucose 278 H (74-106) mg/dL POC Glucose (60-110) mg/dL Calcium 8.6 (8.5-10.1) mg/dL Total Bilirubin 0.2 (0.2-1.0) mg/dL AST 12 L (15-37) IU/L ALT 17 (14-63) IU/L Alkaline Phosphatase 75 (46-116) U/L Troponin I < 0.050 (0.000-0.056) ng/mL B-Natriuretic Peptide 92 (<100) PG/ML Total Protein 6.8 (6.4-8.2) g/dL Albumin 3.2 L (3.4-5.0) g/dL Globulin 3.6 (2.6-4.0) g/dL Albumin/Globulin Ratio 0.9 (0.9-1.6) Lipase 102 (73-393) U/L TSH 3rd Generation 2.21 (0.36-3.74) uIU/mL Urine Color Urine Appearance Urine pH (5.0-8.0) Ur Specific [place] (1.001-1.035) Urine Protein (NEGATIVE) mg/dL Urine Glucose (UA) (NEGATIVE) mg/dL Urine Ketones (NEGATIVE) mg/dL Urine Occult Blood (NEGATIVE) Urine Nitrite (NEGATIVE) Urine Bilirubin (NEGATIVE) Urine Urobilinogen (<2.0) EU/dL Ur Leukocyte Esterase (NEGATIVE) Urine RBC (0-2/HPF) Urine WBC (0-5/HPF) Ur Epithelial Cells (NONE-FEW) Urine Bacteria (NEGATIVE) Urine HCG, Qual (NEGATIVE) 10/25/18 10/25/18 10/25/18 Range/Units 15:20 15:20 16:48 WBC (4.0-11.0) K/uL RBC (4.30-5.90) M/uL Hgb (12.0-16.0) g/dL Hct (36.0-46.0) % MCV (80.0-98.0) fL MCH (27.0-32.0) pg MCHC (31.0-37.0) g/dL RDW Std Deviation (28.0-62.0) fl RDW Coeff of Donna (11.0-15.0) % Plt Count (150-400) K/uL MPV (7.40-12.00) fL Nucleated RBC % /100WBC Nucleated RBCs # K/uL Sodium (136-145) mmol/L Potassium (3.5-5.1) mmol/L Chloride (98-107) mmol/L Carbon Dioxide (21.0-32.0) mmol/L BUN (7.0-18.0) mg/dL Creatinine (0.6-1.0) mg/dL Est Cr Clr Drug Dosing mL/min Estimated GFR (MDRD) ml/min Glucose (74-106) mg/dL POC Glucose (60-110) mg/dL Calcium (8.5-10.1) mg/dL Total Bilirubin (0.2-1.0) mg/dL AST (15-37) IU/L ALT (14-63) IU/L Alkaline Phosphatase (46-116) U/L Troponin I < 0.050 (0.000-0.056) ng/mL B-Natriuretic Peptide (<100) PG/ML Total Protein (6.4-8.2) g/dL Albumin (3.4-5.0) g/dL Globulin (2.6-4.0) g/dL Albumin/Globulin Ratio (0.9-1.6) Lipase (73-393) U/L TSH 3rd Generation (0.36-3.74) uIU/mL Urine Color YELLOW Urine Appearance CLEAR Urine pH 6.5 (5.0-8.0) Ur Specific [place] 1.010 (1.001-1.035) Urine Protein NEGATIVE (NEGATIVE) mg/dL Urine Glucose (UA) NEGATIVE (NEGATIVE) mg/dL Urine Ketones NEGATIVE (NEGATIVE) mg/dL Urine Occult Blood NEGATIVE (NEGATIVE) Urine Nitrite NEGATIVE (NEGATIVE) Urine Bilirubin NEGATIVE (NEGATIVE) Urine Urobilinogen 0.2 (<2.0) EU/dL Ur Leukocyte Esterase NEGATIVE (NEGATIVE) Urine RBC NONE SEEN (0-2/HPF) Urine WBC NONE SEEN (0-5/HPF) Ur Epithelial Cells RARE (NONE-FEW) Urine Bacteria RARE (NEGATIVE) Urine HCG, Qual NEGATIVE (NEGATIVE) 10/25/18 10/25/18 10/25/18 Range/Units 16:54 20:30 23:15 WBC (4.0-11.0) K/uL RBC (4.30-5.90) M/uL Hgb (12.0-16.0) g/dL Hct (36.0-46.0) % MCV (80.0-98.0) fL MCH (27.0-32.0) pg MCHC (31.0-37.0) g/dL RDW Std Deviation (28.0-62.0) fl RDW Coeff of Donna (11.0-15.0) % Plt Count (150-400) K/uL MPV (7.40-12.00) fL Nucleated RBC % /100WBC Nucleated RBCs # K/uL Sodium (136-145) mmol/L Potassium (3.5-5.1) mmol/L Chloride (98-107) mmol/L Carbon Dioxide (21.0-32.0) mmol/L BUN (7.0-18.0) mg/dL Creatinine (0.6-1.0) mg/dL Est Cr Clr Drug Dosing mL/min Estimated GFR (MDRD) ml/min Glucose (74-106) mg/dL POC Glucose 208 H 229 H (60-110) mg/dL Calcium (8.5-10.1) mg/dL Total Bilirubin (0.2-1.0) mg/dL AST (15-37) IU/L ALT (14-63) IU/L Alkaline Phosphatase (46-116) U/L Troponin I < 0.050 (0.000-0.056) ng/mL B-Natriuretic Peptide (<100) PG/ML Total Protein (6.4-8.2) g/dL Albumin (3.4-5.0) g/dL Globulin (2.6-4.0) g/dL Albumin/Globulin Ratio (0.9-1.6) Lipase (73-393) U/L TSH 3rd Generation (0.36-3.74) uIU/mL Urine Color Urine Appearance Urine pH (5.0-8.0) Ur Specific [place] (1.001-1.035) Urine Protein (NEGATIVE) mg/dL Urine Glucose (UA) (NEGATIVE) mg/dL Urine Ketones (NEGATIVE) mg/dL Urine Occult Blood (NEGATIVE) Urine Nitrite (NEGATIVE) Urine Bilirubin (NEGATIVE) Urine Urobilinogen (<2.0) EU/dL Ur Leukocyte Esterase (NEGATIVE) Urine RBC (0-2/HPF) Urine WBC (0-5/HPF) Ur Epithelial Cells (NONE-FEW) Urine Bacteria (NEGATIVE) Urine HCG, Qual (NEGATIVE) 10/26/18 10/26/18 10/26/18 Range/Units 05:15 05:15 06:32 WBC 11.26 H (4.0-11.0) K/uL RBC 4.65 (4.30-5.90) M/uL Hgb 13.6 (12.0-16.0) g/dL Hct 41.9 (36.0-46.0) % MCV 90.1 (80.0-98.0) fL MCH 29.2 (27.0-32.0) pg MCHC 32.5 (31.0-37.0) g/dL RDW Std Deviation 51.9 (28.0-62.0) fl RDW Coeff of Donna 16 H (11.0-15.0) % Plt Count 200 (150-400) K/uL MPV 10.20 (7.40-12.00) fL Nucleated RBC % 0.0 /100WBC Nucleated RBCs # 0 K/uL Sodium 137 (136-145) mmol/L Potassium 5.1 (3.5-5.1) mmol/L Chloride 103 (98-107) mmol/L Carbon Dioxide 28.3 (21.0-32.0) mmol/L BUN 13 (7.0-18.0) mg/dL Creatinine 1.0 (0.6-1.0) mg/dL Est Cr Clr Drug Dosing 47.27 mL/min Estimated GFR (MDRD) 58.2 ml/min Glucose 183 H (74-106) mg/dL POC Glucose 139 H (60-110) mg/dL Calcium 8.8 (8.5-10.1) mg/dL Total Bilirubin (0.2-1.0) mg/dL AST (15-37) IU/L ALT (14-63) IU/L Alkaline Phosphatase (46-116) U/L Troponin I (0.000-0.056) ng/mL B-Natriuretic Peptide (<100) PG/ML Total Protein (6.4-8.2) g/dL Albumin (3.4-5.0) g/dL Globulin (2.6-4.0) g/dL Albumin/Globulin Ratio (0.9-1.6) Lipase (73-393) U/L TSH 3rd Generation (0.36-3.74) uIU/mL Urine Color Urine Appearance Urine pH (5.0-8.0) Ur Specific [place] (1.001-1.035) Urine Protein (NEGATIVE) mg/dL Urine Glucose (UA) (NEGATIVE) mg/dL Urine Ketones (NEGATIVE) mg/dL Urine Occult Blood (NEGATIVE) Urine Nitrite (NEGATIVE) Urine Bilirubin (NEGATIVE) Urine Urobilinogen (<2.0) EU/dL Ur Leukocyte Esterase (NEGATIVE) Urine RBC (0-2/HPF) Urine WBC (0-5/HPF) Ur Epithelial Cells (NONE-FEW) Urine Bacteria (NEGATIVE) Urine HCG, Qual (NEGATIVE) Med Orders - Current: Current Medications Acetaminophen (Tylenol) 650 mg PO Q4H PRN PRN Reason: Pain (Mild 1-3)/fever Last Admin: 10/25/18 20:40 Dose: 650 mg Hydrocodone Bitart/Acetaminophen (Mazama 325-10 Mg) 1 tab PO Q8HR PRN PRN Reason: pain Last Admin: 10/26/18 09:15 Dose: 1 tab Albuterol (Proventil Neb Soln) 2.5 mg NEB Q2H PRN PRN Reason: Shortness Of Breath/wheezing Albuterol/Ipratropium (Duoneb 3.0-0.5 Mg/3 Ml) 3 ml NEB Q4HRRT PRN PRN Reason: Shortness Of Breath/wheezing Aspirin (Halfprin) 81 mg PO DAILY [facility] Last Admin: 10/26/18 08:03 Dose: 81 mg Clopidogrel Bisulfate (Plavix) 75 mg PO DAILY [facility] Last Admin: 10/26/18 08:02 Dose: 75 mg Enoxaparin Sodium (Lovenox) 40 mg SUBCUT Q24H [facility] Last Admin: 10/25/18 12:35 Dose: 40 mg Insulin Aspart (Novolog) 0 unit SUBCUT TIDAC [facility]; Protocol Last Admin: 10/26/18 06:36 Dose: Not Given Insulin Glargine/Lixisenatide [ Soliqua 100 Unit-33 Mcg/Ml] 1 each SUBCUT DAILY [facility] Last Admin: 10/26/18 08:13 Dose: Not Given Pregabalin (Lyrica) 300 mg PO BID [facility] Last Admin: 10/26/18 08:02 Dose: 300 mg Rosuvastatin Calcium (Crestor) 20 mg PO DAILY [facility] Last Admin: 10/26/18 08:02 Dose: 20 mg Sodium Chloride (Saline Flush) 10 ml FLUSH ASDIRECTED PRN PRN Reason: Keep Vein Open Last Admin: 10/25/18 10:33 Dose: 10 ml Sodium Chloride (Saline Flush) 2.5 ml FLUSH ASDIRECTED PRN PRN Reason: Keep Vein Open Last Admin: 10/25/18 10:33 Dose: 2.5 ml Valsartan (Diovan) 40 mg PO DAILY [facility] Last Admin: 10/26/18 08:02 Dose: 40 mg Discontinued Medications Furosemide (Lasix) 40 mg IVPUSH NOW ONE Stop: 10/25/18 14:18 Last Admin: 10/25/18 14:35 Dose: 40 mg Sodium Chloride (Normal Saline) 500 mls @ 999 mls/hr IV .Bolus ONE Stop: 10/25/18 11:14 Last Admin: 10/25/18 10:45 Dose: 999 mls/hr Ketorolac Tromethamine (Toradol) 30 mg IVPUSH ONETIME ONE Stop: 10/26/18 07:56 Last Admin: 10/26/18 07:58 Dose: 30 mg Morphine Sulfate (Morphine) 2 mg IVPUSH Q2H PRN PRN Reason: Pain (severe 7-10) Stop: 10/26/18 11:48 Last Admin: 10/25/18 15:51 Dose: 2 mg Nitroglycerin (Nitro-Bid 2%) 1 gm TOP ONETIME ONE Stop: 10/25/18 10:26 Last Admin: 10/25/18 10:33 Dose: 1 gm Oxycodone HCl (Oxycodone) 5 mg PO Q4H PRN PRN Reason: Pain (moderate 4-6) Last Admin: 10/25/18 12:02 Dose: 5 mg
[2018-10-26] MEDS: Enoxaparin 40 MG/0.4 ML Syringe SUBCUT SCH (12:15)
[2018-10-26 19:25] VITALS: BP 131/71
[2018-10-26] MEDS ORDERED: Acetaminophen/HYDROcodone 325-10 MG Tab PO ONE (21:00)
== END 2018-10-26 21:15 | disposition home or self-care (01) ==
LOC: MW.ED 09:54 → MW.MS 11:38
PROVIDERS: ADMIT Internal Medicine; ATTEND Internal Medicine
DX: R07.89 Other chest pain (principal); E11.65 Type 2 diabetes mellitus with hyperglycemia; I11.0 Hypertensive heart disease with heart failure; I50.9 Heart failure, unspecified; I25.2 Old myocardial infarction; I25.10 Atherosclerotic heart disease of native coronary artery without angina pectoris; F17.210 Nicotine dependence, cigarettes, uncomplicated; E66.9 Obesity, unspecified; Z68.35 Body mass index [BMI] 35.0-35.9, adult; Z88.1 Allergy status to other antibiotic agents; Z88.0 Allergy status to penicillin; Z88.8 Allergy status to other drugs, medicaments and biological substances; Z79.82 Long term (current) use of aspirin; Z79.4 Long term (current) use of insulin; Z79.899 Other long term (current) drug therapy; Z95.5 Presence of coronary angioplasty implant and graft
CPT/HCPCS: 36415; 71045; 71045-26; 80048; 80053; 81001; 81025; 82962; 83690; 83880; 84443; 84484; 85025; 85027; 85610; 93005; 96360; 96361; 96372; 96374; 96375; 96376; 99284; 99285-25; A9270-GY; G0378; J1650; J1815-GY; J1885; J1940; J2270; J7040

== ENCOUNTER 2018-11-11 11:06 | Observation (INO) | payer MEDICAID ==
[~2018-11-11 11:06] MED LIST: INSULIN GLARGINE SUBCUT SCH; LIXISENATIDE SUBCUT SCH
[2018-11-11] MEDS ORDERED: Sodium Chloride 0.9% 2.5 ML Syringe FLUSH PRN (11:10)
[2018-11-11] MEDS ORDERED: Sodium Chloride 0.9% 10 ML Syringe FLUSH PRN (11:10)
--- NOTE | 2018-11-11 11:13 | EDM.PDOC ---
ED HPI GENERAL MEDICAL PROBLEM - General Stated Complaint: CHEST PAIN, SHORTNESS OF BREATH SINCE YEST Time Seen by Provider: 11/11/18 11:09 Source of Information: Reports: Patient History Limitations: Reports: No Limitations - History of Present Illness INITIAL COMMENTS - FREE TEXT/NARRATIVE: HISTORY AND PHYSICAL: History of present illness: Patient is a 53-year-old female who presents to the emergency room with complaints of shortness of breath and chest pain. She states yesterday afternoon she started to develop shortness of breath that was exacerbated with physical activity and movement. This morning she started to develop midsternal/ left-sided chest wall pain. This pain does not radiate and does not improve or get worse with physical activity or movement. Reports that she feels anxious at this time and feels this is playing a part in some of her symptoms. She was recently admitted to our hospital on 10/25/18 for chest pain and serial cardiac enzymes. She states that "everything turned out okay" and does have a follow-up to see our paper control clerk on 11/24/18. She does have a history of coronary artery disease with stent placement, previous [place], hypertension and heart failure. Also type II diabetic and uses insulin. Patient denies any fever, chills, headache, change in vision, syncope or near syncope. Denies any neck pain/stiffness, back pain or cough. Denies any abdominal pain, nausea, vomiting, diarrhea, constipation or dysuria. Patient has been eating and drinking appropriately. Has not had any aspirin today. Is not on anticoagulant therapy. Current daily smoker over the past 30 years. No significant family history of heart disease. Review of systems: As per history of present illness and below otherwise all systems reviewed and negative. Past medical history: As per history of present illness and as reviewed below otherwise noncontributory. Surgical history: As per history of present illness and as reviewed below otherwise noncontributory. Social history: See social history for further information Family history: As per history of present illness and as reviewed below otherwise noncontributory. Physical exam: General: Well-developed and well-nourished 53-year-old female. Alert and oriented. Anxious appearing, but nontoxic and in no acute distress. HEENT: Atraumatic, normocephalic, pupils equal and reactive bilaterally, negative for conjunctival pallor or scleral icterus, mucous membranes moist, trachea midline. No drooling or trismus noted. No meningeal signs. No hot potato voice noted. Lungs: Clear to auscultation, breath sounds equal bilaterally, chest nontender ( mild tenderness at site of bruise to left breast/chest). Heart: S1S2, regular rate and rhythm without overt murmur Abdomen: Soft, nondistended, obese, and nontender. Negative for masses. Negative for costovertebral tenderness. Skin: Healing bruising noted to the left upper breast. Otherwise skin is intact , warm, dry. No lesions or rashes noted. Extremities: Atraumatic, moves all extremities per self without difficulty or deficits, negative for cords or calf pain. Neurovascular unremarkable. Neuro: Awake, alert, oriented. Cranial nerves II through XII unremarkable. Cerebellum unremarkable. Motor and sensory unremarkable throughout. Exam nonfocal. Notes: Patient did have relief of her chest pain after the nitroglycerin, although does have sharp stabbing pains that are intermittent and lasting a few seconds. Currently pain-free. Lab work is unremarkable. No changes in chest x-ray from . Vital signs are stable and have been reviewed by me. We discussed admission, she states she would like to be observed. Due to her medical history will call Dr. Mayes. Dr Mayes consulted on this patient. He is agreeable for continued observation and serial cardiac enzymes. Diagnostics: CBC, CMP, troponin, EKG, one view chest, BNP Therapeutics: Saline lock, aspirin, Nitro subling, Ativan Impression: Chest pain rule out [place] Anxiety Plan: Observation admission to [facility] with telemetry Definitive disposition and diagnosis as appropriate pending reevaluation and review of above. chest Pain Score (Numeric/FACES): 8 - Related Data Allergies Allergy/AdvReac Type Severity Reaction Status Date / Time carbamazepine [From Tegretol] Allergy Blurred Verified 10/25/18 16:35 Vision ceftriaxone [From Rocephin] Allergy Respiratory Verified 10/25/18 16:35 Distress Penicillins Allergy Cannot Verified 10/25/18 16:35 Remember Home Meds: Home Meds Aspirin [Halfprin] 81 mg PO DAILY 08/19/18 [History] Clopidogrel [Plavix] 75 mg PO DAILY 08/19/18 [History] Insulin Glargine/Lixisenatide [Soliqua 100 Unit-33 Mcg/ml Pen] 35 units SQ DAILY 08/19/18 [History] Pregabalin [Lyrica] 300 mg PO BID 08/19/18 [History] ALPRAZolam [Alprazolam] 0.5 mg PO Q8H PRN 10/25/18 [History] Furosemide [Lasix] 40 mg PO DAILY PRN 10/25/18 [History] Hydrocodone/Acetaminophen [Hydrocodon-Acetaminophn 10-325] 1 tab PO Q8HR PRN [History] Metoprolol Tartrate [Lopressor] 50 mg PO DAILY 10/25/18 [History] Nitroglycerin 0.4 mg SL ASDIRECTED PRN 10/25/18 [History] Ondansetron [Zofran] 4 mg PO Q8H PRN 10/25/18 [History] Potassium Chloride [Klor-Con M20] 20 meq PO DAILY PRN 10/25/18 [History] Rosuvastatin [Crestor] 40 mg PO DAILY 10/25/18 [History] Valsartan 40 mg PO DAILY 10/25/18 [History] Acetaminophen [Tylenol] 650 mg PO Q4H PRN tablet 10/26/18 [Rx] Past Medical History HEENT History: Reports: None Cardiovascular History: Reports: Heart Failure, Hypertension, [place] Other Cardiovascular History: Heart Stent x2 in Jan 2018 Respiratory History: Reports: None Gastrointestinal History: Reports: None Genitourinary History: Reports: None Musculoskeletal History: Reports: Back Pain, Chronic Neurological History: Reports: Neuropathy, Diabetic Endocrine/Metabolic History: Reports: Diabetes, Type II, Obesity/BMI 30+ Hematologic History: Reports: None Immunologic History: Reports: None Oncologic (Cancer) History: Reports: None Dermatologic History: Reports: None - Infectious Disease History Infectious Disease History: Reports: None Social & Family History - Family History Family Medical History: Noncontributory - Caffeine Use Caffeine Use: Reports: None Caffeine Use Comment: caffenated cola drink - Living Situation & Occupation Living situation: Reports: Single, with Family Occupation: Unemployed ED ROS GENERAL - Review of Systems Review Of Systems: ROS reveals no pertinent complaints other than HPI. ED EXAM, GENERAL - Physical Exam Exam: See Below (See dictation) Course - Vital Signs Last Recorded V/S: Last Vital Signs Temp 96.3 F 11/11/18 11:14 Pulse 78 11/11/18 11:40 Resp 20 11/11/18 11:40 BP 131/83 11/11/18 11:50 Pulse Ox 95 11/11/18 11:40 - Orders/Labs/Meds Orders: Active Orders 24 hr Category Date Time Status Admission Status [Patient Status] [ADT] Stat ADT 11/11/18 11:57 Ordered EKG Documentation Completion [RC] STAT Care 11/11/18 11:10 Active Chest 1V Frontal [CR] Stat Exams 11/11/18 11:10 Taken B-TYPE NATRIURETIC PEPTIDE,BNP [CHEM] Stat Lab 11/11/18 11:15 Received Sodium Chloride 0.9% [Saline Flush] Med 11/11/18 11:10 Active 10 ml FLUSH ASDIRECTED PRN Sodium Chloride 0.9% [Saline Flush] Med 11/11/18 11:10 Active 2.5 ml FLUSH ASDIRECTED PRN Saline Lock Insert [OM.PC] Stat Oth 11/11/18 11:10 Ordered Medication Orders Sodium Chloride (Saline Flush) 10 ml FLUSH ASDIRECTED PRN PRN Reason: Keep Vein Open Last Admin: 11/11/18 11:22 Dose: 10 ml Sodium Chloride (Saline Flush) 2.5 ml FLUSH ASDIRECTED PRN PRN Reason: Keep Vein Open Last Admin: 11/11/18 11:22 Dose: 2.5 ml Labs: Laboratory Tests 11/11/18 11/11/18 Range/Units 11:15 11:15 WBC 9.83 (4.0-11.0) K/uL RBC 4.57 (4.30-5.90) M/uL Hgb 13.2 (12.0-16.0) g/dL Hct 41.2 (36.0-46.0) % MCV 90.2 (80.0-98.0) fL MCH 28.9 (27.0-32.0) pg MCHC 32.0 (31.0-37.0) g/dL RDW Std Deviation 51.8 (28.0-62.0) fl RDW Coeff of Donna 16 H (11.0-15.0) % Plt Count 215 (150-400) K/uL MPV 9.40 (7.40-12.00) fL Neut % (Auto) 61.3 (48.0-80.0) % Lymph % (Auto) 30.8 (16.0-40.0) % [place] % (Auto) 5.1 (0.0-15.0) % Eos % (Auto) 2.6 (0.0-7.0) % Baso % (Auto) 0.2 (0.0-1.5) % Neut # (Auto) 6.0 H (1.4-5.7) K/uL Lymph # (Auto) 3.0 H (0.6-2.4) K/uL [place] # (Auto) 0.5 (0.0-0.8) K/uL Eos # (Auto) 0.3 (0.0-0.7) K/uL Baso # (Auto) 0.0 (0.0-0.1) K/uL Nucleated RBC % 0.0 /100WBC Nucleated RBCs # 0 K/uL Sodium 142 (136-145) mmol/L Potassium 3.9 (3.5-5.1) mmol/L Chloride 103 (98-107) mmol/L Carbon Dioxide 27.7 (21.0-32.0) mmol/L BUN 11 (7.0-18.0) mg/dL Creatinine 0.9 (0.6-1.0) mg/dL Est Cr Clr Drug Dosing 52.52 mL/min Estimated GFR (MDRD) > 60.0 ml/min Glucose 173 H (74-106) mg/dL Calcium 8.2 L (8.5-10.1) mg/dL Total Bilirubin 0.2 (0.2-1.0) mg/dL AST 12 L (15-37) IU/L ALT 19 (14-63) IU/L Alkaline Phosphatase 72 (46-116) U/L Troponin I < 0.050 (0.000-0.056) ng/mL Total Protein 6.9 (6.4-8.2) g/dL Albumin 3.3 L (3.4-5.0) g/dL Globulin 3.6 (2.6-4.0) g/dL Albumin/Globulin Ratio 0.9 (0.9-1.6) Meds: Medications Generic Name Dose Route Start Last Admin Trade Name Freq PRN Reason Stop Dose Admin Sodium Chloride 10 ml 11/11/18 11:10 11/11/18 11:22 Saline Flush FLUSH 10 ml ASDIRECTED PRN Administration Keep Vein Open Sodium Chloride 2.5 ml 11/11/18 11:10 11/11/18 11:22 Saline Flush FLUSH 2.5 ml ASDIRECTED PRN Administration Keep Vein Open Discontinued Medications Generic Name Dose Route Start Last Admin Trade Name Freq PRN Reason Stop Dose Admin Aspirin 324 mg 11/11/18 11:14 11/11/18 11:20 Aspirin PO 11/11/18 11:15 324 mg ONETIME ONE Administration Lorazepam 1 mg 11/11/18 11:14 11/11/18 11:21 Ativan IVPUSH 11/11/18 11:15 1 mg ONETIME ONE Administration Nitroglycerin 0.4 mg 11/11/18 11:33 11/11/18 11:50 Nitrostat SL 0.4 mg Q5M PRN Administration Chest Pain Departure - Departure Time of Disposition: 11:56 Disposition: Refer to Observation Clinical Impression: Chest pain, rule out acute myocardial infarction Referrals: PCP,None [Primary Care Provider] - - My Orders Last 24 Hours: My Active Orders 11/11/18 11:10 EKG Documentation Completion [RC] STAT Chest 1V Frontal [CR] Stat Sodium Chloride 0.9% [Saline Flush] 10 ml FLUSH ASDIRECTED PRN Sodium Chloride 0.9% [Saline Flush] 2.5 ml FLUSH ASDIRECTED PRN Saline Lock Insert [OM.PC] Stat 11/11/18 11:15 B-TYPE NATRIURETIC PEPTIDE,BNP [CHEM] Stat 11/11/18 11:57 Admission Status [Patient Status] [ADT] Stat - Assessment/Plan Last 24 Hours: My Active Orders 11/11/18 11:10 EKG Documentation Completion [RC] STAT Chest 1V Frontal [CR] Stat Sodium Chloride 0.9% [Saline Flush] 10 ml FLUSH ASDIRECTED PRN Sodium Chloride 0.9% [Saline Flush] 2.5 ml FLUSH ASDIRECTED PRN Saline Lock Insert [OM.PC] Stat 11/11/18 11:15 B-TYPE NATRIURETIC PEPTIDE,BNP [CHEM] Stat 11/11/18 11:57 Admission Status [Patient Status] [ADT] Stat
[2018-11-11] MEDS ORDERED: LORazepam 2 MG/ML SDV IVPUSH ONE (11:14)
[2018-11-11] MEDS ORDERED: Aspirin 81 MG Tab.Chew PO ONE (11:14)
[2018-11-11] MEDS: Nitroglycerin 0.4 MG Tab.SL SL PRN ×3 (11:40→11:50)
[2018-11-11 11:47] LABS: CHLORIDE,CL 103 mmol/L (98-107); SODIUM,NA 142 mmol/L (136-145)
[2018-11-11] MEDS ORDERED: Acetaminophen 325 MG Tab PO PRN (12:28)
[2018-11-11] MEDS ORDERED: Furosemide 40 MG/4 ML VIAL IVPUSH ONE (12:31)
--- NOTE | 2018-11-11 12:39 | PCM.HP ---
H&P History of Present Illness - General Date of Service: 11/11/18 Admit Problem/Dx: Admission Diagnosis/Problem Admission Diagnosis/Problem Chest pain, rule out acute myocardial infarction - History of Present Illness Initial Comments - Free Text/Narative: 53 yo female with pmh of CAD, HTN and CHF with preserved EF. who present with several day history of shortness of breath. Patient reports she has been working nights and the job has been more difficult than normal. She feels like she is fluid overloaded as her abdomen has swelled and she has gain weight. She also report sharp chest pain with breathing. chest Pain Score (Numeric/FACES): 8 - Related Data Allergies/Adverse Reactions: Allergies Allergy/AdvReac Type Severity Reaction Status Date / Time Penicillins Allergy Mild Rash Verified 11/11/18 13:03 carbamazepine [From Tegretol] Allergy Blurred Verified 11/11/18 13:02 Vision ceftriaxone [From Rocephin] Allergy Respiratory Verified 11/11/18 13:02 Distress Home Medications: Home Meds Aspirin [Halfprin] 81 mg PO DAILY 08/19/18 [History] Clopidogrel [Plavix] 75 mg PO DAILY 08/19/18 [History] Insulin Glargine/Lixisenatide [Soliqua 100 Unit-33 Mcg/ml Pen] 45 units SQ BEDTIME 08/19/18 [History] Pregabalin [Lyrica] 300 mg PO BID 08/19/18 [History] Furosemide [Lasix] 40 mg PO DAILY PRN 10/25/18 [History] Hydrocodone/Acetaminophen [Hydrocodon-Acetaminophn 10-325] 1 tab PO Q6H PRN [History] Metoprolol Tartrate [Lopressor] 50 mg PO DAILY 10/25/18 [History] Nitroglycerin 0.4 mg SL .EVERY 5 MINUTES PRN MDD 3 TABLETS 10/25/18 [History] Ondansetron [Zofran] 4 mg PO Q8H PRN 10/25/18 [History] Potassium Chloride [Klor-Con M20] 20 meq PO DAILY PRN 10/25/18 [History] Rosuvastatin [Crestor] 40 mg PO DAILY 10/25/18 [History] Valsartan 40 mg PO DAILY 10/25/18 [History] Diclofenac Sodium [Voltaren] 75 mg PO BID 11/11/18 [History] Past Medical History HEENT History: Reports: None Cardiovascular History: Reports: Heart Failure, Hypertension, [place] Other Cardiovascular History: Heart Stent x2 in Jan 2018 Respiratory History: Reports: None Gastrointestinal History: Reports: None Genitourinary History: Reports: None Musculoskeletal History: Reports: Back Pain, Chronic Other Musculoskeletal History: sciatica Neurological History: Reports: Neuropathy, Diabetic Endocrine/Metabolic History: Reports: Diabetes, Type II, Obesity/BMI 30+ Hematologic History: Reports: None Immunologic History: Reports: None Oncologic (Cancer) History: Reports: None Dermatologic History: Reports: None - Infectious Disease History Infectious Disease History: Reports: None Social & Family History - Family History Family Medical History: Noncontributory - Tobacco Use Smoking Status *Q: Light Tobacco Smoker Years of Tobacco use: 30 Packs/Tins Daily: 0.1 - Caffeine Use Caffeine Use: Reports: None Caffeine Use Comment: caffenated cola drink - Recreational Drug Use Recreational Drug Use: No - Living Situation & Occupation Living situation: Reports: Single, with Family Occupation: Unemployed H&P Review of Systems - Review of Systems: Review Of Systems: ROS reveals no pertinent complaints other than HPI. Exam - Exam Exam: See Below - Vital Signs Vital Signs: Last Vital Signs Temp 35.7 C 11/11/18 11:14 Pulse 78 11/11/18 12:07 Resp 18 11/11/18 12:07 BP 121/77 11/11/18 12:07 Pulse Ox 95 11/11/18 12:07 Weight: 77.111 kg - Exam General: Alert, Oriented HEENT: Mucosa Moist & [place] Neck: Supple Lungs: Clear to Auscultation, Normal Respiratory Effort GI/Abdominal Exam: Normal Bowel Sounds, Non-Tender, No Distention Extremities: Non-Tender, No Pedal Edema Skin: Warm, Dry, Intact - Patient Data Lab Results Last 24 hrs: Laboratory Results - last 24 hr 11/11/18 11/11/18 11/11/18 Range/Units 11:15 11:15 11:15 WBC 9.83 (4.0-11.0) K/uL RBC 4.57 (4.30-5.90) M/uL Hgb 13.2 (12.0-16.0) g/dL Hct 41.2 (36.0-46.0) % MCV 90.2 (80.0-98.0) fL MCH 28.9 (27.0-32.0) pg MCHC 32.0 (31.0-37.0) g/dL RDW Std Deviation 51.8 (28.0-62.0) fl RDW Coeff of Donna 16 H (11.0-15.0) % Plt Count 215 (150-400) K/uL MPV 9.40 (7.40-12.00) fL Neut % (Auto) 61.3 (48.0-80.0) % Lymph % (Auto) 30.8 (16.0-40.0) % [place] % (Auto) 5.1 (0.0-15.0) % Eos % (Auto) 2.6 (0.0-7.0) % Baso % (Auto) 0.2 (0.0-1.5) % Neut # (Auto) 6.0 H (1.4-5.7) K/uL Lymph # (Auto) 3.0 H (0.6-2.4) K/uL [place] # (Auto) 0.5 (0.0-0.8) K/uL Eos # (Auto) 0.3 (0.0-0.7) K/uL Baso # (Auto) 0.0 (0.0-0.1) K/uL Nucleated RBC % 0.0 /100WBC Nucleated RBCs # 0 K/uL Sodium 142 (136-145) mmol/L Potassium 3.9 (3.5-5.1) mmol/L Chloride 103 (98-107) mmol/L Carbon Dioxide 27.7 (21.0-32.0) mmol/L BUN 11 (7.0-18.0) mg/dL Creatinine 0.9 (0.6-1.0) mg/dL Est Cr Clr Drug Dosing 52.52 mL/min Estimated GFR (MDRD) > 60.0 ml/min Glucose 173 H (74-106) mg/dL Calcium 8.2 L (8.5-10.1) mg/dL Total Bilirubin 0.2 (0.2-1.0) mg/dL AST 12 L (15-37) IU/L ALT 19 (14-63) IU/L Alkaline Phosphatase 72 (46-116) U/L Troponin I < 0.050 (0.000-0.056) ng/mL B-Natriuretic Peptide 356 H (<100) PG/ML Total Protein 6.9 (6.4-8.2) g/dL Albumin 3.3 L (3.4-5.0) g/dL Globulin 3.6 (2.6-4.0) g/dL Albumin/Globulin Ratio 0.9 (0.9-1.6) Result Diagrams: 11/11/18 11:15 11/11/18 11:15 Problem List Initiated/Reviewed/Updated: Yes Orders Last 24hrs: Active Orders 24 hr Category Date Time Status Admission Status [Patient Status] [ADT] Stat ADT 11/11/18 11:57 Active EKG Documentation Completion [RC] STAT Care 11/11/18 11:10 Active Chest 1V Frontal [CR] Stat Exams 11/11/18 11:10 Taken Acetaminophen [Tylenol] Med 11/11/18 12:28 Active 650 mg PO Q4H PRN Acetaminophen/HYDROcodone [[place] 325-10 MG] Med 11/11/18 12:28 Active 1 tab PO Q6H PRN Clopidogrel [Plavix] Med 11/11/18 09:00 Active 75 mg PO DAILY Furosemide [Lasix] Med 11/11/18 21:00 Active 40 mg IVPUSH BID Furosemide [Lasix] Med 11/11/18 12:31 Once 40 mg IVPUSH NOW ONE Insulin Glargine/Lixisenatide [Soliqua 100 Unit-33 Mcg/ Med 11/11/18 09:00 Ordered ml Pen] 45 units SQ DAILY Metoprolol Tartrate [Lopressor] Med 11/11/18 09:00 Active 50 mg PO DAILY Pregabalin [Lyrica] Med 11/11/18 21:00 Ordered 300 mg PO BID Rosuvastatin [Crestor] Med 11/12/18 09:00 Ordered 40 mg PO DAILY Sodium Chloride 0.9% [Saline Flush] Med 11/11/18 11:10 Active 10 ml FLUSH ASDIRECTED PRN Sodium Chloride 0.9% [Saline Flush] Med 11/11/18 11:10 Active 2.5 ml FLUSH ASDIRECTED PRN Valsartan [Valsartan] Med 11/11/18 09:00 Ordered 40 mg PO DAILY Saline Lock Insert [OM.PC] Stat Oth 11/11/18 11:10 Ordered Medication Orders Acetaminophen (Tylenol) 650 mg PO Q4H PRN PRN Reason: Pain (Mild 1-3)/fever Hydrocodone Bitart/Acetaminophen ([place] 325-10 Mg) 1 tab PO Q6H PRN PRN Reason: pain Clopidogrel Bisulfate (Plavix) 75 mg PO DAILY [facility] Furosemide (Lasix) 40 mg IVPUSH BID [facility] Metoprolol Tartrate (Lopressor) 50 mg PO DAILY [facility] Non-Formulary Medication (Insulin Glargine/Lixisenatide [Soliqua 100 Unit-33 Mcg /Ml Pen]) 45 units SQ DAILY [facility] Non-Formulary Medication (Pregabalin [Lyrica]) 300 mg PO BID [facility] Non-Formulary Medication (Valsartan [Valsartan]) 40 mg PO DAILY [facility] Rosuvastatin Calcium (Crestor) 40 mg PO DAILY [facility] Sodium Chloride (Saline Flush) 10 ml FLUSH ASDIRECTED PRN PRN Reason: Keep Vein Open Last Admin: 11/11/18 11:22 Dose: 10 ml Sodium Chloride (Saline Flush) 2.5 ml FLUSH ASDIRECTED PRN PRN Reason: Keep Vein Open Last Admin: 11/11/18 11:22 Dose: 2.5 ml Assessment/Plan Comment:: 53 yo female admitted for CHF exacerbation Diastolic heart failure: will diurese with lasix Chest pain: trend cardiac enzymes CAD: continue home medications.
[2018-11-11] MEDS ORDERED: Furosemide 40 MG/4 ML VIAL IVPUSH SCH (12:45)
--- NOTE | 2018-11-11 12:49 | CR ---
INDICATION: Chest pain. COMPARISON: 10/25/2018 FINDINGS: An erect single view of the chest was obtained at 1146 hours. The lungs remain clear. No focal or diffuse infiltrates are present. The heart remains top normal in size. The mediastinum is normal in appearance. The osseous structures are normal in appearance for the patient`s age. COMPARISON IMPRESSION: Normal chest single view. Dictated by Carlos Jolley MD @ Nov 11 2018 12:47PM Signed by Dr. Carlos Jolley @ Nov 11 2018 12:48PM
[2018-11-11] MEDS: Metoprolol Tartrate 50 MG Tab PO SCH (13:52)
[2018-11-11] MEDS: Clopidogrel 75 MG Tab PO SCH (13:53)
[2018-11-11] MEDS: Acetaminophen/HYDROcodone 325-10 MG Tab PO PRN ×2 (13:53→20:06)
[2018-11-11] MEDS: Morphine 2 MG/ML Syringe IVPUSH PRN ×2 (17:08→21:20)
[2018-11-11] MEDS: Furosemide 40 MG/4 ML VIAL IVPUSH SCH (20:06)
[2018-11-11] MEDS: Pregabalin 75 MG Cap PO SCH (20:25)
[2018-11-11] MEDS: Insulin Glargine,Human Rec. Analog 100 Units/ML 3 ML Pen SUBCUT SCH (20:30)
[2018-11-12] MEDS: Morphine 2 MG/ML Syringe IVPUSH PRN ×2 (00:24→05:41)
[2018-11-12] MEDS: Acetaminophen/HYDROcodone 325-10 MG Tab PO PRN ×5 (04:25→23:45)
[2018-11-12] MEDS: Clopidogrel 75 MG Tab PO SCH (08:35)
[2018-11-12] MEDS: Metoprolol Tartrate 50 MG Tab PO SCH ×2 (08:35→08:39)
[2018-11-12] MEDS: Pregabalin 75 MG Cap PO SCH ×2 (08:35→21:03)
[2018-11-12] MEDS: Furosemide 40 MG/4 ML VIAL IVPUSH SCH (08:36)
[2018-11-12] MEDS: Rosuvastatin 10 MG Tab PO SCH (09:07)
--- NOTE | 2018-11-12 09:20 | PCM.PN ---
- General Info Date of Service: 11/12/18 - Review of Systems Systems Review Comment:: bozena reports chest pain has not improved, its left upper chest - Patient Data Vitals - Most Recent: Last Vital Signs Temp 36 C 11/12/18 08:00 Pulse 65 11/12/18 08:00 Resp 20 11/12/18 08:00 BP 110/67 11/12/18 08:00 Pulse Ox 93 L 11/12/18 08:00 Weight - Most Recent: 82.129 kg I&O - Last 24 Hours: Intake & Output 11/11/18 11/12/18 11/12/18 22:59 06:59 14:59 Intake Total 200 1070 Output Total 1150 1230 Balance -950 -160 Lab Results Last 24 Hours: Laboratory Results - last 24 hr 11/11/18 11/11/18 11/11/18 Range/Units 11:15 11:15 11:15 WBC 9.83 (4.0-11.0) K/uL RBC 4.57 (4.30-5.90) M/uL Hgb 13.2 (12.0-16.0) g/dL Hct 41.2 (36.0-46.0) % MCV 90.2 (80.0-98.0) fL MCH 28.9 (27.0-32.0) pg MCHC 32.0 (31.0-37.0) g/dL RDW Std Deviation 51.8 (28.0-62.0) fl RDW Coeff of Donna 16 H (11.0-15.0) % Plt Count 215 (150-400) K/uL MPV 9.40 (7.40-12.00) fL Neut % (Auto) 61.3 (48.0-80.0) % Lymph % (Auto) 30.8 (16.0-40.0) % [place] % (Auto) 5.1 (0.0-15.0) % Eos % (Auto) 2.6 (0.0-7.0) % Baso % (Auto) 0.2 (0.0-1.5) % Neut # (Auto) 6.0 H (1.4-5.7) K/uL Lymph # (Auto) 3.0 H (0.6-2.4) K/uL [place] # (Auto) 0.5 (0.0-0.8) K/uL Eos # (Auto) 0.3 (0.0-0.7) K/uL Baso # (Auto) 0.0 (0.0-0.1) K/uL Nucleated RBC % 0.0 /100WBC Nucleated RBCs # 0 K/uL Sodium 142 (136-145) mmol/L Potassium 3.9 (3.5-5.1) mmol/L Chloride 103 (98-107) mmol/L Carbon Dioxide 27.7 (21.0-32.0) mmol/L BUN 11 (7.0-18.0) mg/dL Creatinine 0.9 (0.6-1.0) mg/dL Est Cr Clr Drug Dosing 52.52 mL/min Estimated GFR (MDRD) > 60.0 ml/min Glucose 173 H (74-106) mg/dL POC Glucose (60-110) mg/dL Calcium 8.2 L (8.5-10.1) mg/dL Total Bilirubin 0.2 (0.2-1.0) mg/dL AST 12 L (15-37) IU/L ALT 19 (14-63) IU/L Alkaline Phosphatase 72 (46-116) U/L Troponin I < 0.050 (0.000-0.056) ng/mL B-Natriuretic Peptide 356 H (<100) PG/ML Total Protein 6.9 (6.4-8.2) g/dL Albumin 3.3 L (3.4-5.0) g/dL Globulin 3.6 (2.6-4.0) g/dL Albumin/Globulin Ratio 0.9 (0.9-1.6) 11/11/18 11/11/18 11/11/18 Range/Units 17:18 20:28 22:45 WBC (4.0-11.0) K/uL RBC (4.30-5.90) M/uL Hgb (12.0-16.0) g/dL Hct (36.0-46.0) % MCV (80.0-98.0) fL MCH (27.0-32.0) pg MCHC (31.0-37.0) g/dL RDW Std Deviation (28.0-62.0) fl RDW Coeff of Donna (11.0-15.0) % Plt Count (150-400) K/uL MPV (7.40-12.00) fL Neut % (Auto) (48.0-80.0) % Lymph % (Auto) (16.0-40.0) % [place] % (Auto) (0.0-15.0) % Eos % (Auto) (0.0-7.0) % Baso % (Auto) (0.0-1.5) % Neut # (Auto) (1.4-5.7) K/uL Lymph # (Auto) (0.6-2.4) K/uL [place] # (Auto) (0.0-0.8) K/uL Eos # (Auto) (0.0-0.7) K/uL Baso # (Auto) (0.0-0.1) K/uL Nucleated RBC % /100WBC Nucleated RBCs # K/uL Sodium (136-145) mmol/L Potassium (3.5-5.1) mmol/L Chloride (98-107) mmol/L Carbon Dioxide (21.0-32.0) mmol/L BUN (7.0-18.0) mg/dL Creatinine (0.6-1.0) mg/dL Est Cr Clr Drug Dosing mL/min Estimated GFR (MDRD) ml/min Glucose (74-106) mg/dL POC Glucose 123 H (60-110) mg/dL Calcium (8.5-10.1) mg/dL Total Bilirubin (0.2-1.0) mg/dL AST (15-37) IU/L ALT (14-63) IU/L Alkaline Phosphatase (46-116) U/L Troponin I < 0.050 < 0.050 (0.000-0.056) ng/mL B-Natriuretic Peptide (<100) PG/ML Total Protein (6.4-8.2) g/dL Albumin (3.4-5.0) g/dL Globulin (2.6-4.0) g/dL Albumin/Globulin Ratio (0.9-1.6) 11/12/18 Range/Units 05:48 WBC (4.0-11.0) K/uL RBC (4.30-5.90) M/uL Hgb (12.0-16.0) g/dL Hct (36.0-46.0) % MCV (80.0-98.0) fL MCH (27.0-32.0) pg MCHC (31.0-37.0) g/dL RDW Std Deviation (28.0-62.0) fl RDW Coeff of Donna (11.0-15.0) % Plt Count (150-400) K/uL MPV (7.40-12.00) fL Neut % (Auto) (48.0-80.0) % Lymph % (Auto) (16.0-40.0) % [place] % (Auto) (0.0-15.0) % Eos % (Auto) (0.0-7.0) % Baso % (Auto) (0.0-1.5) % Neut # (Auto) (1.4-5.7) K/uL Lymph # (Auto) (0.6-2.4) K/uL [place] # (Auto) (0.0-0.8) K/uL Eos # (Auto) (0.0-0.7) K/uL Baso # (Auto) (0.0-0.1) K/uL Nucleated RBC % /100WBC Nucleated RBCs # K/uL Sodium (136-145) mmol/L Potassium (3.5-5.1) mmol/L Chloride (98-107) mmol/L Carbon Dioxide (21.0-32.0) mmol/L BUN (7.0-18.0) mg/dL Creatinine (0.6-1.0) mg/dL Est Cr Clr Drug Dosing mL/min Estimated GFR (MDRD) ml/min Glucose (74-106) mg/dL POC Glucose 97 (60-110) mg/dL Calcium (8.5-10.1) mg/dL Total Bilirubin (0.2-1.0) mg/dL AST (15-37) IU/L ALT (14-63) IU/L Alkaline Phosphatase (46-116) U/L Troponin I (0.000-0.056) ng/mL B-Natriuretic Peptide (<100) PG/ML Total Protein (6.4-8.2) g/dL Albumin (3.4-5.0) g/dL Globulin (2.6-4.0) g/dL Albumin/Globulin Ratio (0.9-1.6) Med Orders - Current: Current Medications Acetaminophen (Tylenol) 650 mg PO Q4H PRN PRN Reason: Pain (Mild 1-3)/fever Last Admin: 11/11/18 16:14 Dose: 650 mg Hydrocodone Bitart/Acetaminophen ([place] 325-10 Mg) 1 tab PO Q6H PRN PRN Reason: pain Last Admin: 11/12/18 04:25 Dose: 1 tab Clopidogrel Bisulfate (Plavix) 75 mg PO DAILY [facility] Last Admin: 11/12/18 08:35 Dose: 75 mg Furosemide (Lasix) 40 mg IVPUSH BID [facility] Last Admin: 11/12/18 08:36 Dose: 40 mg Insulin Glargine (Lantus Solostar) 45 units SUBCUT BEDTIME [facility] Last Admin: 11/11/18 20:30 Dose: 45 units Metoprolol Tartrate (Lopressor) 50 mg PO DAILY [facility] Last Admin: 11/12/18 08:39 Dose: Not Given Pregabalin (Lyrica) 300 mg PO BID [facility] Last Admin: 11/12/18 08:35 Dose: 300 mg Rosuvastatin Calcium (Crestor) 40 mg PO DAILY [facility] Last Admin: 11/12/18 09:07 Dose: 40 mg Sodium Chloride (Saline Flush) 10 ml FLUSH ASDIRECTED PRN PRN Reason: Keep Vein Open Last Admin: 11/11/18 11:22 Dose: 10 ml Sodium Chloride (Saline Flush) 2.5 ml FLUSH ASDIRECTED PRN PRN Reason: Keep Vein Open Last Admin: 11/11/18 11:22 Dose: 2.5 ml Valsartan (Diovan) 40 mg PO DAILY [facility] Last Admin: 11/12/18 08:37 Dose: Not Given Discontinued Medications Aspirin (Aspirin) 324 mg PO ONETIME ONE Stop: 11/11/18 11:15 Last Admin: 11/11/18 11:20 Dose: 324 mg Furosemide (Lasix) 40 mg IVPUSH BID [facility] Furosemide (Lasix) 40 mg IVPUSH NOW ONE Stop: 11/11/18 12:32 Last Admin: 11/11/18 12:44 Dose: 40 mg Lorazepam (Ativan) 1 mg IVPUSH ONETIME ONE Stop: 11/11/18 11:15 Last Admin: 11/11/18 11:21 Dose: 1 mg Morphine Sulfate (Morphine) 2 mg IVPUSH Q3H PRN PRN Reason: Pain Last Admin: 11/12/18 05:41 Dose: 2 mg Nitroglycerin (Nitrostat) 0.4 mg SL Q5M PRN PRN Reason: Chest Pain Last Admin: 11/11/18 11:50 Dose: 0.4 mg Insulin Glargine/Lixisenatide ( Soliqua) 0 each SUBCUT DAILY [facility] Last Admin: 11/11/18 13:57 Dose: Not Given - Exam General: Alert, Oriented Lungs: Clear to Auscultation, Normal Respiratory Effort Cardiovascular: Regular Rate, Regular Rhythm GI/Abdominal Exam: Soft, Non-Tender Extremities: Non-Tender, No Pedal Edema Skin: Other (bruising over left upper breast with palpable lump underneath) - Problem List Review Problem List Initiated/Reviewed/Updated: Yes - My Orders Last 24 Hours: My Active Orders 11/11/18 09:00 Clopidogrel [Plavix] 75 mg PO DAILY Metoprolol Tartrate [Lopressor] 50 mg PO DAILY Valsartan [Diovan] 40 mg PO DAILY 11/11/18 12:28 Acetaminophen [Tylenol] 650 mg PO Q4H PRN Acetaminophen/HYDROcodone [[place] 325-10 MG] 1 tab PO Q6H PRN 11/11/18 12:32 Telemetry Monitoring [Cardiac Monitoring] [RC] Q8H 11/11/18 21:00 Furosemide [Lasix] 40 mg IVPUSH BID Pregabalin [Lyrica] 300 mg PO BID 11/12/18 04:54 Accu Check [Blood Glucose Check, Bedside] [RC] TIDAC 11/12/18 09:00 Rosuvastatin [Crestor] 40 mg PO DAILY 11/12/18 09:08 D-DIMER QUANTITATIVE [COAG] Routine - Plan Plan:: 53 yo female admitted for CHF exacerbation Diastolic heart failure: we will continue lasix Chest pain: cardiac enzymes have been negative, will check CT chest, patient will likely need referral for mammography CAD: continue home medications.
--- NOTE | 2018-11-12 11:28 | CT ---
INDICATION: Left chest pain. Masslike structure left breast for 2 weeks. TECHNIQUE: Multiple axial images were obtained from the apices to the diaphragm without contrast. Sagittal and coronal re-formatted images were obtained. COMPARISON: Chest x-ray done 11/11/2018. FINDINGS: There is atelectasis in the dependent portion of the lungs. The lungs otherwise clear infiltrate. There is a calcified granuloma in the right lower lobe. There is no pleural effusion. There is no axillary mediastinal or hilar adenopathy seen on this nonenhanced study. There is a small pericardial effusion. There are coronary calcifications. At a site marked for a BB in the left breast superior medially there is a masslike density measuring 2 cm. There are degenerative changes in the spine IMPRESSION: Masslike density in the left breast superior medially measuring up to 2 cm. A breast cancer cannot be excluded Recommend diagnostic mammography and ultrasound with radiologist present to further evaluate this. Small pericardial effusion. Dictated by Pablo Jean MD @ 11/12/2018 11:26:30 AM Please note that all CT scans at this facility use dose modulation, iterative reconstruction, and/or weight-based dosing when appropriate to reduce radiation dose to as low as reasonably achievable. Dictated by: Pablo Jean MD @ 11/12/2018 11:26:36 (Electronically Signed)
[2018-11-12] MEDS ORDERED: Lidocaine 5% 700 MG Patch TOP PRN (14:26)
[2018-11-12] MEDS: Insulin Glargine,Human Rec. Analog 100 Units/ML 3 ML Pen SUBCUT SCH (21:05)
[2018-11-13] MEDS: Acetaminophen/HYDROcodone 325-10 MG Tab PO PRN ×2 (04:40→08:48)
[2018-11-13 07:55] VITALS: BP 99/62
[2018-11-13] MEDS: Rosuvastatin 10 MG Tab PO SCH (08:43)
[2018-11-13] MEDS: Clopidogrel 75 MG Tab PO SCH (08:43)
[2018-11-13] MEDS: Pregabalin 75 MG Cap PO SCH (08:44)
--- NOTE | 2018-11-13 10:46 | PCM.DCSUM1 ---
Discharge Summary - Discharge Data Discharge Date: 11/13/18 Discharge Disposition: Home, Self-Care 01 Condition: Fair - Patient Summary/Data Hospital Course: 53 yo female with pmh of CAD, HTN and CHF with preserved EF who present with several day history of shortness of breath. Patient reports she has been working nights and the job has been more difficult than normal. She feels like she is fluid overloaded as her abdomen has swelled and she has gain weight. She also report sharp chest pain with breathing on the left upper chest wall. She reports a new lump in her upper left upper breast two weeks ago. The was ecchymosis over the lump of her breast that appeared old. The CT chest reported a 2cm left breast mass. She was admitted and ruled out for acute coronary syndrome with serial negative cardiac enzymes. She was given IV lasix with improvement in her shortness of breath. She is to be discharged today. She was informed of the need for further work up of her breast mass and is to follow up at [facility]. - Discharge Plan Home Medications: Home Meds Aspirin [Halfprin] 81 mg PO DAILY 08/19/18 [History] Clopidogrel [Plavix] 75 mg PO DAILY 08/19/18 [History] Insulin Glargine/Lixisenatide [Soliqua 100 Unit-33 Mcg/ml Pen] 45 units SQ BEDTIME 08/19/18 [History] Pregabalin [Lyrica] 300 mg PO BID 08/19/18 [History] Furosemide [Lasix] 40 mg PO DAILY PRN 10/25/18 [History] Hydrocodone/Acetaminophen [Hydrocodon-Acetaminophn 10-325] 1 tab PO Q6H PRN [History] Metoprolol Tartrate [Lopressor] 50 mg PO DAILY 10/25/18 [History] Nitroglycerin 0.4 mg SL .EVERY 5 MINUTES PRN MDD 3 TABLETS 10/25/18 [History] Ondansetron [Zofran] 4 mg PO Q8H PRN 10/25/18 [History] Potassium Chloride [Klor-Con M20] 20 meq PO DAILY PRN 10/25/18 [History] Rosuvastatin [Crestor] 40 mg PO DAILY 10/25/18 [History] Valsartan 40 mg PO DAILY 10/25/18 [History] Diclofenac Sodium [Voltaren] 75 mg PO BID 11/11/18 [History] Patient Handouts: Steps to Quit Smoking, [id number], Nonspecific Chest Pain, [id number], Mammogram, [id number] Referrals: Ivet Maza, [employer] [Nurse Practitioner] - (Call the clinic on Wednesday to make a hospital follow-up appointment. This was not able to done at day of discharge, due to it being the weekend.) - Discharge Summary/Plan Comment DC Time >30 min.: No - Patient Data Vitals - Most Recent: Last Vital Signs Temp 36.3 C 11/13/18 07:53 Pulse 70 11/13/18 07:53 Resp 20 11/13/18 07:53 BP 99/62 11/13/18 07:53 Pulse Ox 95 11/13/18 07:53 Weight - Most Recent: 82.355 kg I&O - Last 24 hours: Intake & Output 11/12/18 11/13/18 11/13/18 22:59 06:59 14:59 Intake Total 600 480 Output Total 1700 200 Balance -1100 280 Lab Results - Last 24 hrs: Laboratory Results - last 24 hr 11/12/18 11/12/18 11/12/18 Range/Units 10:57 14:12 17:36 POC Glucose 183 H 193 H (60-110) mg/dL Urine Color YELLOW Urine Appearance CLEAR Urine pH 7.0 (5.0-8.0) Ur Specific [place] 1.010 (1.001-1.035) Urine Protein NEGATIVE (NEGATIVE) mg/dL Urine Glucose (UA) NEGATIVE (NEGATIVE) mg/dL Urine Ketones NEGATIVE (NEGATIVE) mg/dL Urine Occult Blood NEGATIVE (NEGATIVE) Urine Nitrite NEGATIVE (NEGATIVE) Urine Bilirubin NEGATIVE (NEGATIVE) Urine Urobilinogen 0.2 (<2.0) EU/dL Ur Leukocyte Esterase SMALL H (NEGATIVE) Urine RBC 0-1 (0-2/HPF) Urine WBC 1-2 (0-5/HPF) Ur Epithelial Cells FEW (NONE-FEW) Urine Bacteria FEW (NEGATIVE) 11/12/18 11/13/18 Range/Units 21:02 04:45 POC Glucose 324 H 123 H (60-110) mg/dL Urine Color Urine Appearance Urine pH (5.0-8.0) Ur Specific [place] (1.001-1.035) Urine Protein (NEGATIVE) mg/dL Urine Glucose (UA) (NEGATIVE) mg/dL Urine Ketones (NEGATIVE) mg/dL Urine Occult Blood (NEGATIVE) Urine Nitrite (NEGATIVE) Urine Bilirubin (NEGATIVE) Urine Urobilinogen (<2.0) EU/dL Ur Leukocyte Esterase (NEGATIVE) Urine RBC (0-2/HPF) Urine WBC (0-5/HPF) Ur Epithelial Cells (NONE-FEW) Urine Bacteria (NEGATIVE) Med Orders - Current: Current Medications Acetaminophen (Tylenol) 650 mg PO Q4H PRN PRN Reason: Pain (Mild 1-3)/fever Last Admin: 11/11/18 16:14 Dose: 650 mg Hydrocodone Bitart/Acetaminophen ([place] 325-10 Mg) 1 tab PO Q4H PRN PRN Reason: pain Last Admin: 11/13/18 08:48 Dose: 1 tab Clopidogrel Bisulfate (Plavix) 75 mg PO DAILY [facility] Last Admin: 11/13/18 08:43 Dose: 75 mg Insulin Glargine (Lantus Solostar) 45 units SUBCUT BEDTIME [facility] Last Admin: 11/12/18 21:05 Dose: 45 units Lidocaine (Lidoderm 5%) 700 mg TOP DAILY PRN PRN Reason: pain Pregabalin (Lyrica) 300 mg PO BID [facility] Last Admin: 11/13/18 08:44 Dose: 300 mg Rosuvastatin Calcium (Crestor) 40 mg PO DAILY [facility] Last Admin: 11/13/18 08:43 Dose: 40 mg Sodium Chloride (Saline Flush) 10 ml FLUSH ASDIRECTED PRN PRN Reason: Keep Vein Open Last Admin: 11/11/18 11:22 Dose: 10 ml Sodium Chloride (Saline Flush) 2.5 ml FLUSH ASDIRECTED PRN PRN Reason: Keep Vein Open Last Admin: 11/11/18 11:22 Dose: 2.5 ml Discontinued Medications Hydrocodone Bitart/Acetaminophen ([place] 325-10 Mg) 1 tab PO Q6H PRN PRN Reason: pain Last Admin: 11/12/18 10:43 Dose: 1 tab Aspirin (Aspirin) 324 mg PO ONETIME ONE Stop: 11/11/18 11:15 Last Admin: 11/11/18 11:20 Dose: 324 mg Furosemide (Lasix) 40 mg IVPUSH BID [facility] Furosemide (Lasix) 40 mg IVPUSH NOW ONE Stop: 11/11/18 12:32 Last Admin: 11/11/18 12:44 Dose: 40 mg Furosemide (Lasix) 40 mg IVPUSH BID [facility] Last Admin: 11/12/18 08:36 Dose: 40 mg Lorazepam (Ativan) 1 mg IVPUSH ONETIME ONE Stop: 11/11/18 11:15 Last Admin: 11/11/18 11:21 Dose: 1 mg Metoprolol Tartrate (Lopressor) 50 mg PO DAILY [facility] Last Admin: 11/12/18 08:39 Dose: Not Given Morphine Sulfate (Morphine) 2 mg IVPUSH Q3H PRN PRN Reason: Pain Last Admin: 11/12/18 05:41 Dose: 2 mg Nitroglycerin (Nitrostat) 0.4 mg SL Q5M PRN PRN Reason: Chest Pain Last Admin: 11/11/18 11:50 Dose: 0.4 mg Insulin Glargine/Lixisenatide ( Soliqua) 0 each SUBCUT DAILY [facility] Last Admin: 11/11/18 13:57 Dose: Not Given Valsartan (Diovan) 40 mg PO DAILY [facility] Last Admin: 11/12/18 08:37 Dose: Not Given
== END 2018-11-13 10:50 | disposition home or self-care (01) ==
LOC: MW.ED 11:06 → MW.MS 11:57 → UNDOADMOB 12:19 → MW.MS 12:24
PROVIDERS: ADMIT Internal Medicine; ATTEND Internal Medicine
DX: R07.9 Chest pain, unspecified (principal); I11.0 Hypertensive heart disease with heart failure; I50.30 Unspecified diastolic (congestive) heart failure; I25.10 Atherosclerotic heart disease of native coronary artery without angina pectoris; I25.2 Old myocardial infarction; E11.40 Type 2 diabetes mellitus with diabetic neuropathy, unspecified; E66.9 Obesity, unspecified; M54.30 Sciatica, unspecified side; G89.29 Other chronic pain; F17.210 Nicotine dependence, cigarettes, uncomplicated; Z79.82 Long term (current) use of aspirin; Z79.4 Long term (current) use of insulin; Z79.02 Long term (current) use of antithrombotics/antiplatelets; Z79.899 Other long term (current) drug therapy; Z88.1 Allergy status to other antibiotic agents; Z95.5 Presence of coronary angioplasty implant and graft; Z68.35 Body mass index [BMI] 35.0-35.9, adult
CPT/HCPCS: 36415; 71045; 71250; 80053; 81001; 82962; 83880; 84484; 85025; 85379; 93005; 96374; 96375; 96376; 99285; A9270; G0378; J1815; J1940; J2060; J2270

== ENCOUNTER 2018-11-27 14:07 | Emergency (ER) | payer MEDICAID ==
[2018-11-27] MEDS ORDERED: Sodium Chloride 0.9% 2.5 ML Syringe FLUSH PRN (14:12)
[2018-11-27] MEDS ORDERED: Sodium Chloride 0.9% 1,000 ML IV ONE (14:12)
[2018-11-27] MEDS ORDERED: Sodium Chloride 0.9% 10 ML Syringe FLUSH PRN (14:12)
--- NOTE | 2018-11-27 14:30 | EDM.PDOC ---
ED HPI GENERAL MEDICAL PROBLEM - General Chief Complaint: General Stated Complaint: OVERDOSE Time Seen by Provider: 11/27/18 14:29 Source of Information: Reports: Patient, Family History Limitations: Reports: No Limitations - History of Present Illness INITIAL COMMENTS - FREE TEXT/NARRATIVE: HISTORY AND PHYSICAL: History of present illness: Patient is a 53-year-old female who presents to the emergency room by private vehicle with altered mental status. , Whom the patient lives with, states over the past 2 days she has then "not acting right". She has had multiple standing height falls. According to the friend she has not loss consciousness and has been able to get up off the ground and ambulate per usual. Patient does have multiple medications which she is taking for her chronic health problems and pain/anxiety. She has been taking large amounts of Kratom, which is an over-the- counter plant based pain reliever (similar affects of opioids). Patient has been taking large amounts of this for an extended amount of time, although the friend believes she hasn't had it in the last few days. Today the was incontinent of urine and stool, friend states she had to clean her up. States this is not normal for her and thus brought her to the emergency room for evaluation. Patient denies any alcohol or drug abuse. Past medical history of coronary artery disease, PR with stents, hypertension, congestive heart failure, type 2 diabetes and chronic back pain. Review of systems: As per history of present illness and below otherwise all systems reviewed and negative. Past medical history: As per history of present illness and as reviewed below otherwise noncontributory. Surgical history: As per history of present illness and as reviewed below otherwise noncontributory. Social history: See social history for further information Family history: As per history of present illness and as reviewed below otherwise noncontributory. Physical exam: General: Well-developed and well-nourished 53-year-old female. Alert, arousable and responding in short 1 - 2 word responses. Follow short simple commands. HEENT: Atraumatic, normocephalic, pupils equal and reactive bilaterally, negative for conjunctival pallor or scleral icterus, mucous membranes moist, TMs normal bilaterally, throat clear, neck supple, nontender, trachea midline. No drooling or trismus noted. No meningeal signs. No hot potato voice noted. Lungs: Clear to auscultation, breath sounds equal bilaterally, chest nontender. Heart: S1S2, regular rate and rhythm without overt murmur Abdomen: Soft, nondistended, obese, nontender. Negative for masses. Negative for costovertebral tenderness. Pelvis: Stable nontender. Skin: Intact, warm, dry. No lesions or rashes noted. Extremities: Atraumatic, moves all extremities per self without difficulty or deficits. Neurovascular unremarkable. Neuro: Alert and easily arousable. Cranial nerves II through XII unremarkable. Cerebellum unremarkable. Motor and sensory unremarkable throughout. Exam nonfocal. Notes: While talking with the friend she is pulling multiple pill bottles out of her purse (belonging to the patient), some have been spilt in the purse and she is putting them back in the bottles. There are multiple providers that have been prescribing to the patient. Patient is unable to state who her primary care provider is. She has been taking her Hydrocodone, Lyrica and OTC Kratum. CT Head: tiny right and barely visible left high parietal subdural hematomas. These produce no mass effect upon the underlying brain. Otherwise normal appearance of the brain itself for the patient`s age. Dr Naik was consulted on this case; she will come in to see the patient. Dr Gallardo was consulted on this case. Patient will be transferred to higher level of care. Dr. Temi Ely,[place] in [place] was consulted on this case. She is agreeable to accepting this patient for further care and management. Transfer via ground EMS. Patient and family friend are aware. Vital signs remain stable here and will continue to monitor Diagnostics: CBC, CMP, UA, urine drug screen, TSH, acetaminophen, salicylate, head CT, EKG, one view chest, monitor technician, ETOH Therapeutics: SL x 2, IV fluid Impression: Altered Mental Status Subdural hematoma Suspected opioid overdose Plan: Transferred to [facility] via ground EMS Definitive disposition and diagnosis as appropriate pending reevaluation and review of above. - Related Data Allergies Allergy/AdvReac Type Severity Reaction Status Date / Time Penicillins Allergy Mild Rash Verified 11/27/18 14:15 carbamazepine [From Tegretol] Allergy Blurred Verified 11/27/18 14:15 Vision ceftriaxone [From Rocephin] Allergy Respiratory Verified 11/27/18 14:15 Distress Home Meds: Home Meds ALPRAZolam [Alprazolam] 1 mg PO ASDIRECTED 11/27/18 [History] Aspirin [Ecotrin EC] 81 mg PO ASDIRECTED 11/27/18 [History] Clopidogrel [Plavix] 75 mg PO DAILY 11/27/18 [History] Diclofenac Sodium [Voltaren] 75 mg PO BID 11/27/18 [History] Escitalopram [Lexapro] 10 mg PO DAILY 11/27/18 [History] Furosemide 40 mg PO DAILY 11/27/18 [History] Hydrocodone/Acetaminophen [Hydrocodon-Acetaminophen 5-325] 1 each PO ASDIRECTED 11/27/18 [History] Hydrocodone/Acetaminophen [Hydrocodon-Acetaminophn 10-325] 1 each PO ASDIRECTED 11/27/18 [History] Metoprolol Succinate [Toprol XL 50mg] 50 mg PO DAILY 11/27/18 [History] Nitroglycerin 0.4 mg PO ASDIRECTED 11/27/18 [History] Ondansetron [Zofran] 4 mg PO ASDIRECTED 11/27/18 [History] Pregabalin [Lyrica] 300 mg PO BID 11/27/18 [History] Rosuvastatin [Crestor] 40 mg PO DAILY 11/27/18 [History] Valsartan 40 mg PO DAILY 11/27/18 [History] rOPINIRole [Requip] 1 mg PO BEDTIME 11/27/18 [History] Past Medical History HEENT History: Reports: None Cardiovascular History: Reports: Heart Failure, Hypertension, PR Other Cardiovascular History: Heart Stent x2 in Jan 2018 Respiratory History: Reports: None Gastrointestinal History: Reports: None Genitourinary History: Reports: None Musculoskeletal History: Reports: Back Pain, Chronic Other Musculoskeletal History: sciatica Neurological History: Reports: Neuropathy, Diabetic Endocrine/Metabolic History: Reports: Diabetes, Type II, Obesity/BMI 30+ Hematologic History: Reports: None Immunologic History: Reports: None Oncologic (Cancer) History: Reports: None Dermatologic History: Reports: None - Infectious Disease History Infectious Disease History: Reports: Other (See Below) Other Infectious Disease History: pt lethargic, unable to answer Social & Family History - Family History Family Medical History: Noncontributory - Tobacco Use Smoking Status *Q: Current Every Day Smoker Years of Tobacco use: 20 Packs/Tins Daily: 1 - Caffeine Use Caffeine Use: Reports: None Caffeine Use Comment: caffenated cola drink - Recreational Drug Use Recreational Drug Use: Yes Other Recreational Drug Type: Kratom Recreational Drug Use Frequency: Daily - Living Situation & Occupation Living situation: Reports: Single, with Family Occupation: Unemployed ED ROS GENERAL - Review of Systems Review Of Systems: ROS reveals no pertinent complaints other than HPI. ED EXAM, GENERAL - Physical Exam Exam: See Below (See dictation) Course - Vital Signs Last Recorded V/S: Last Vital Signs Temp 97.4 F 11/27/18 14:16 Pulse 88 11/27/18 15:19 Resp 16 11/27/18 15:19 BP 118/82 11/27/18 15:19 Pulse Ox 97 11/27/18 15:19 - Orders/Labs/Meds Orders: Active Orders 24 hr Category Date Time Status Blood Glucose Check, Bedside [RC] ONETIME Care 11/27/18 14:30 Active EKG Documentation Completion [RC] STAT Care 11/27/18 14:12 Active ETHANOL BLOOD MEDICAL [CHEM] Stat Lab 11/27/18 16:01 Ordered Sodium Chloride 0.9% [Saline Flush] Med 11/27/18 14:12 Active 10 ml FLUSH ASDIRECTED PRN Sodium Chloride 0.9% [Saline Flush] Med 11/27/18 14:12 Active 2.5 ml FLUSH ASDIRECTED PRN Saline Lock Insert [OM.PC] Stat Oth 11/27/18 14:12 Ordered Medication Orders Sodium Chloride (Saline Flush) 10 ml FLUSH ASDIRECTED PRN PRN Reason: Keep Vein Open Sodium Chloride (Saline Flush) 2.5 ml FLUSH ASDIRECTED PRN PRN Reason: Keep Vein Open Labs: Laboratory Tests 11/27/18 11/27/18 11/27/18 Range/Units 14:20 14:20 14:20 WBC 10.90 (4.0-11.0) K/uL RBC 4.64 (4.30-5.90) M/uL Hgb 13.5 (12.0-16.0) g/dL Hct 41.7 (36.0-46.0) % MCV 89.9 (80.0-98.0) fL MCH 29.1 (27.0-32.0) pg MCHC 32.4 (31.0-37.0) g/dL RDW Std Deviation 50.5 (28.0-62.0) fl RDW Coeff of Donna 16 H (11.0-15.0) % Plt Count 192 (150-400) K/uL MPV 10.20 (7.40-12.00) fL Neut % (Auto) 64.5 (48.0-80.0) % Lymph % (Auto) 25.0 (16.0-40.0) % Cedar % (Auto) 6.4 (0.0-15.0) % Eos % (Auto) 4.0 (0.0-7.0) % Baso % (Auto) 0.1 (0.0-1.5) % Neut # (Auto) 7.0 H (1.4-5.7) K/uL Lymph # (Auto) 2.7 H (0.6-2.4) K/uL Cedar # (Auto) 0.7 (0.0-0.8) K/uL Eos # (Auto) 0.4 (0.0-0.7) K/uL Baso # (Auto) 0.0 (0.0-0.1) K/uL Nucleated RBC % 0.0 /100WBC Nucleated RBCs # 0 K/uL Sodium 136 (136-145) mmol/L Potassium 4.8 (3.5-5.1) mmol/L Chloride 101 (98-107) mmol/L Carbon Dioxide 24.4 (21.0-32.0) mmol/L BUN 14 (7.0-18.0) mg/dL Creatinine 0.8 (0.6-1.0) mg/dL Est Cr Clr Drug Dosing 71.03 mL/min Estimated GFR (MDRD) > 60.0 ml/min Glucose 224 H (74-106) mg/dL POC Glucose (60-110) mg/dL Calcium 9.1 (8.5-10.1) mg/dL Total Bilirubin 0.4 (0.2-1.0) mg/dL AST 12 L (15-37) IU/L ALT 16 (14-63) IU/L Alkaline Phosphatase 83 (46-116) U/L Total Protein 6.8 (6.4-8.2) g/dL Albumin 3.5 (3.4-5.0) g/dL Globulin 3.3 (2.6-4.0) g/dL Albumin/Globulin Ratio 1.1 (0.9-1.6) TSH 3rd Generation 0.52 (0.36-3.74) uIU/mL HCG, Qual NEGATIVE (NEG) Urine Color Urine Appearance Urine pH (5.0-8.0) Ur Specific Clements (1.001-1.035) Urine Protein (NEGATIVE) mg/dL Urine Glucose (UA) (NEGATIVE) mg/dL Urine Ketones (NEGATIVE) mg/dL Urine Occult Blood (NEGATIVE) Urine Nitrite (NEGATIVE) Urine Bilirubin (NEGATIVE) Urine Urobilinogen (<2.0) EU/dL Ur Leukocyte Esterase (NEGATIVE) Salicylates 1.3 (0-20) mg/dL Urine Opiates Screen (NEGATIVE) Ur Oxycodone Screen (NEGATIVE) Urine Methadone Screen (NEGATIVE) Acetaminophen <2.0 ug/mL Ur Barbiturates Screen (NEGATIVE) Ur Phencyclidine Scrn (NEGATIVE) Ur Amphetamine Screen (NEGATIVE) U Methamphetamines Scrn (NEGATIVE) U Benzodiazepines Scrn (NEGATIVE) U Cocaine Metab Screen (NEGATIVE) U Marijuana (THC) Screen (NEGATIVE) 11/27/18 11/27/18 11/27/18 Range/Units 15:10 15:10 15:13 WBC (4.0-11.0) K/uL RBC (4.30-5.90) M/uL Hgb (12.0-16.0) g/dL Hct (36.0-46.0) % MCV (80.0-98.0) fL MCH (27.0-32.0) pg MCHC (31.0-37.0) g/dL RDW Std Deviation (28.0-62.0) fl RDW Coeff of Donna (11.0-15.0) % Plt Count (150-400) K/uL MPV (7.40-12.00) fL Neut % (Auto) (48.0-80.0) % Lymph % (Auto) (16.0-40.0) % Cedar % (Auto) (0.0-15.0) % Eos % (Auto) (0.0-7.0) % Baso % (Auto) (0.0-1.5) % Neut # (Auto) (1.4-5.7) K/uL Lymph # (Auto) (0.6-2.4) K/uL Cedar # (Auto) (0.0-0.8) K/uL Eos # (Auto) (0.0-0.7) K/uL Baso # (Auto) (0.0-0.1) K/uL Nucleated RBC % /100WBC Nucleated RBCs # K/uL Sodium (136-145) mmol/L Potassium (3.5-5.1) mmol/L Chloride (98-107) mmol/L Carbon Dioxide (21.0-32.0) mmol/L BUN (7.0-18.0) mg/dL Creatinine (0.6-1.0) mg/dL Est Cr Clr Drug Dosing mL/min Estimated GFR (MDRD) ml/min Glucose (74-106) mg/dL POC Glucose 214 H (60-110) mg/dL Calcium (8.5-10.1) mg/dL Total Bilirubin (0.2-1.0) mg/dL AST (15-37) IU/L ALT (14-63) IU/L Alkaline Phosphatase (46-116) U/L Total Protein (6.4-8.2) g/dL Albumin (3.4-5.0) g/dL Globulin (2.6-4.0) g/dL Albumin/Globulin Ratio (0.9-1.6) TSH 3rd Generation (0.36-3.74) uIU/mL HCG, Qual (NEG) Urine Color YELLOW Urine Appearance CLEAR Urine pH 7.0 (5.0-8.0) Ur Specific Clements 1.010 (1.001-1.035) Urine Protein NEGATIVE (NEGATIVE) mg/dL Urine Glucose (UA) NEGATIVE (NEGATIVE) mg/dL Urine Ketones NEGATIVE (NEGATIVE) mg/dL Urine Occult Blood NEGATIVE (NEGATIVE) Urine Nitrite NEGATIVE (NEGATIVE) Urine Bilirubin NEGATIVE (NEGATIVE) Urine Urobilinogen 0.2 (<2.0) EU/dL Ur Leukocyte Esterase NEGATIVE (NEGATIVE) Salicylates (0-20) mg/dL Urine Opiates Screen POSITIVE (NEGATIVE) Ur Oxycodone Screen NEGATIVE (NEGATIVE) Urine Methadone Screen NEGATIVE (NEGATIVE) Acetaminophen ug/mL Ur Barbiturates Screen NEGATIVE (NEGATIVE) Ur Phencyclidine Scrn NEGATIVE (NEGATIVE) Ur Amphetamine Screen NEGATIVE (NEGATIVE) U Methamphetamines Scrn NEGATIVE (NEGATIVE) U Benzodiazepines Scrn NEGATIVE (NEGATIVE) U Cocaine Metab Screen NEGATIVE (NEGATIVE) U Marijuana (THC) Screen NEGATIVE (NEGATIVE) Meds: Medications Generic Name Dose Route Start Last Admin Trade Name Freq PRN Reason Stop Dose Admin Sodium Chloride 10 ml 11/27/18 14:12 Saline Flush FLUSH ASDIRECTED PRN Keep Vein Open Sodium Chloride 2.5 ml 11/27/18 14:12 Saline Flush FLUSH ASDIRECTED PRN Keep Vein Open Discontinued Medications Generic Name Dose Route Start Last Admin Trade Name Freq PRN Reason Stop Dose Admin Sodium Chloride 1,000 mls @ 999 mls/hr 11/27/18 14:12 11/27/18 15:21 Normal Saline IV 11/27/18 15:12 999 mls/hr STAT ONE Administration Departure - Departure Time of Disposition: 16:00 Disposition: DC/Tfer to [facility] 02 Clinical Impression: Subdural hematoma, Opioid abuse Altered mental status Qualifiers: Altered mental status type: unspecified Qualified Code(s): R41.82 - Altered mental status, unspecified - Discharge Information Referrals: PCP,Unknown [Primary Care Provider] - Forms: ED Department Discharge - My Orders Last 24 Hours: My Active Orders 11/27/18 14:12 EKG Documentation Completion [RC] STAT Sodium Chloride 0.9% [Saline Flush] 10 ml FLUSH ASDIRECTED PRN Sodium Chloride 0.9% [Saline Flush] 2.5 ml FLUSH ASDIRECTED PRN Saline Lock Insert [OM.PC] Stat 11/27/18 14:30 Blood Glucose Check, Bedside [RC] ONETIME 11/27/18 16:01 ETHANOL BLOOD MEDICAL [CHEM] Stat - Assessment/Plan Last 24 Hours: My Active Orders 11/27/18 14:12 EKG Documentation Completion [RC] STAT Sodium Chloride 0.9% [Saline Flush] 10 ml FLUSH ASDIRECTED PRN Sodium Chloride 0.9% [Saline Flush] 2.5 ml FLUSH ASDIRECTED PRN Saline Lock Insert [OM.PC] Stat 11/27/18 14:30 Blood Glucose Check, Bedside [RC] ONETIME 11/27/18 16:01 ETHANOL BLOOD MEDICAL [CHEM] Stat
[2018-11-27 14:59] LABS: ACETAMINOPHEN <2.0 ug/mL
[2018-11-27 15:13] LABS: CHLORIDE,CL 101 mmol/L (98-107); SODIUM,NA 136 mmol/L (136-145)
--- NOTE | 2018-11-27 15:33 | CT ---
INDICATION: Altered mental status. The patient has had multiple falls over the past several days. COMPARISON: None available. TECHNIQUE: CT examination of the head was performed with 3 mm thick axial sections without intravenous contrast. Images were obtained from the vertex of the skull through the skull base, and I examined the images with the brain and bone windows. Please note that all CT scans at this facility use dose modulation, iterative reconstruction, and/or weight-based dosing when appropriate to reduce radiation dose to as low as reasonably achievable. FINDINGS: : There is a minimal acute high right parietal subdural hematoma, seen on axial images 44 through 51 series 201, as well as on the coronal images. There is also a barely visible left high parietal subdural hematoma best seen on the coronal images. These produce no mass effect upon the underlying brain. 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 The brain is otherwise normal in appearance for the patient`s age on today`s study, with no sign of mass lesion, mass effect, hemorrhage, or edema. The ventricles and sulci are normal in appearance for the patient`s age. The visualized portions of the orbits are normal in appearance. The visualized portions of the paranasal sinuses and mastoids are clear. The osseous structures are normal in their appearance with no sign of abnormality in the skull base or calvarium. Incidental note is made of small bilateral sebaceous cysts in the high frontal scalp, 1 on each side. The findings were discussed with Dr. Jazmin Zambrano at 1530 hours on 11/27/2018. IMPRESSION: Tiny right and barely visible left high parietal subdural hematomas. These produce no mass effect upon the underlying brain. Otherwise normal appearance of the brain itself for the patient`s age. Please note that all CT scans at this facility use dose modulation, iterative reconstruction, and/or weight-based dosing when appropriate to reduce radiation dose to as low as reasonably achievable. Dictated by Carlos Jolley MD @ Nov 27 2018 3:23PM Signed by Dr. Carlos Jolley @ Nov 27 2018 3:32PM
--- NOTE | 2018-11-27 15:42 | CR ---
INDICATION: Overdose. COMPARISON: Chest radiograph from 11/11/[address] of the chest from 11/12/2018 FINDINGS: An erect single view of the chest was obtained at 1454 hours. The lungs remain clear. No focal or diffuse infiltrates are present. The heart has increased in size and is now mildly enlarged. The mediastinum is normal in appearance. The osseous structures are normal in appearance for the patient`s age. IMPRESSION: New mild cardiomegaly. Otherwise no active disease seen in the chest. Dictated by Carlos Jolley MD @ Nov 27 2018 3:38PM Signed by Dr. Carlos Jolley @ Nov 27 2018 3:40PM
[2018-11-27 17:37] VITALS: BP 135/97
== END 2018-11-27 15:30 ==
LOC: MW.ED 14:07
DX: S06.5X0A Traumatic subdural hemorrhage without loss of consciousness, initial encounter (principal); R41.82 Altered mental status, unspecified; I11.0 Hypertensive heart disease with heart failure; I50.9 Heart failure, unspecified; E11.40 Type 2 diabetes mellitus with diabetic neuropathy, unspecified; I25.2 Old myocardial infarction; I25.10 Atherosclerotic heart disease of native coronary artery without angina pectoris; F17.210 Nicotine dependence, cigarettes, uncomplicated; F11.10 Opioid abuse, uncomplicated; Z88.0 Allergy status to penicillin; Z88.8 Allergy status to other drugs, medicaments and biological substances; Z79.82 Long term (current) use of aspirin; Z79.899 Other long term (current) drug therapy; Z79.01 Long term (current) use of anticoagulants
CPT/HCPCS: 36415; 70450; 71045; 80053; 80305; 81003; 82962; 84443; 84703; 85025; 93005; 96360; 99285; G0480; J7040; 99284